=== PATIENT | male | born 1960 | race Two or more races ===

== ENCOUNTER 2024-02-11 17:05 | Emergency (ER) | payer OTHER, SELFPAY ==
--- NOTE | 2024-02-11 17:30 | ED.EYEPROB ---
HPI - Eye Problem General Chief complaint: Extremity Problem Stated complaint: swollen R elbow Time Seen by Provider: 02/11/24 18:05 Source: patient, RN notes reviewed and old records reviewed Mode of arrival: ambulatory History of Present Illness ED Provider: Jillian Nino PA-C HPI Narrative: 63 year old male with PMHx HTN, CKD s/p renal transplant (17 yrs ago) c/o presenting to the ED complaining of atraumatic painless right elbow swelling x2 weeks. States woke up with swelling. Denies known injury, trauma/fall, numbness/tingling, fever/chills. Denies taking anticoagulation Related Data Allergies Allergy/AdvReac Type Severity Reaction Status Date / Time No Known Allergies Allergy Verified 02/11/24 18:07 Review of Systems Review of Systems: Constitutional: No Fever, No Chills Cardiovascular: No Chest Pain, No SOB Respiratory: No Cough Gastrointestinal: No Nausea, No Vomiting, No Abdominal pain Musculoskeletal: No joint pain, No Myalgias, + Joint Swelling Skin: No Skin Lesions, No rash Neuro: No Weakness, No Numbness, No Paresthesias Yes all other systems are reviewed and are negative Constitutional: Constitutional: Reports as per [facility] Past Medical History Attestation statement: The following information was validated with the patient. Source: old records reviewed Physical Exam Vital Signs: Vital Signs: Last Vital Signs Temp 98.1 F 02/11/24 18:01 Pulse 77 02/11/24 18:01 Resp 16 02/11/24 18:01 BP 139/87 02/11/24 18:01 Pulse Ox 97 02/11/24 18:01 O2 Del Method Room Air 02/11/24 18:01 BMI result Body Mass Index 32.7 Const: General: cooperative, healthy appearing and no acute distress Orientation/consciousness: patient oriented x3 Limitations: no limitations HEENT: Head: Yes normal to inspection and Yes atraumatic Ears: hearing grossly normal bilaterally General nose exam: Normal external nose present Face and sinus: Yes normal facial exam Eyes: General: appearance normal, both eyes and all related structures EOM: EOMs intact bilaterally Neck: Neck: Yes normal visual inspection and Yes no meningeal signs Resp: Effort & Inspection: normal respiratory effort and no respiratory distress Cardio: Rate: regular rate Skin: Rashes: no rashes Wounds: no wounds Neuro: General: patient oriented x3, tone normal and no meningeal signs Cranial nerves: Yes CN's II-XII intact bilaterally Gait exam (Neuro): Normal gait present Extrem: Other: + bursitis right elbow. No overlying erythema or warmth. Nontender. Full range of motion intact. Neurovascularly intact distally Medical Decision Making Medical Decision Making MDM Narrative: 63 year old male with PMHx HTN, CKD s/p renal transplant (17 yrs ago) c/o presenting to the ED complaining of atraumatic painless right elbow swelling x2 weeks. On exam vital signs stable, NAD, nontoxic appearing, physical exam as noted above consistent with elbow bursitis without overlying infection. Low suspicion for abscess or hematoma. No need for imaging at this time Plan: Compression, PCP/orthopedic follow-up as needed Please refer to course for remaining clinical decision making, interpretation of labs/imaging results, and discussions with consultants and/or family members. Results discussed with patient including worrisome signs and symptoms and strict return precautions, and when to return to the emergency department. They verbalized understanding and feel safe for discharge at this time. Differential Diagnosis Differential Diagnoses: The differential diagnosis associated with the presentation includes As above External Record Review External record reviewed: Inpatient record, Office record, Outpatient record, Prior outpatient labs, Prior outpatient radiology, Primary care record and Outside ED record Tests considered The following testing was considered but not selected: As above Discharge Plan Discharge Clinical Impression: Bursitis Patient Disposition: Home, Self-Care Instructions: Elbow Bursitis (ED) Additional Instructions: you have bursitis use TYSON wrap for compression If area begins look infected, is red there is drainage or warmth or you have fever return to the ED Follow-up with your PCP. Follow-up orthopedics as needed Referrals: [facility] [Provider Group] [facility] [Provider Group] [facility] [Provider Group] (as needed) Print Language: Djiboutian
[2024-02-11 18:01] VITALS: BP 139/87; PULSE 77; RESP 16; TEMP 36.7; O2SAT 97; BMI 32.7
[2024-02-11 18:30] VITALS: BP 139/87; PULSE 77; RESP 16; TEMP 36.7; O2SAT 97
== END 2024-02-11 18:30 | disposition home or self-care (01) ==
PROVIDERS: Emergency Provider Emergency Medicine
DX: M70.31 Other bursitis of elbow, right elbow (principal); Y93.9 Activity, unspecified; M25.521 Pain in right elbow
CPT/HCPCS: 99282

== ENCOUNTER 2024-05-15 15:22 | Outpatient (AMB) | payer OTHER, SELFPAY ==
--- NOTE | 2024-05-15 15:29 | A.OFFVIS_ITS ---
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 Patient reports he does not feel pain in the right elbow, it is just uncomfortable. He expresses his right elbow has a lot of fluid in it. He says he wants to make sure he is not at risk of getting any infection from this. 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 Patient states that this has been going on for a couple of months. Patient states that this condition is painless, but he does find it quite irritating. Patient inquires if there is a surgical intervention to be had for this problem. Denies any numbness or tingling in the right upper extremity. No other acute complaints or concerns at this time. [facility] Social History (Updated 05/15/24 @ 15:35 by KANE Fonseca) Alcohol intake: never Patient Tobacco Use Status: Never used Tobacco Current occupational status: employed Current occupation: right handed / maintenance Review of Systems Const All systems reviewed & are unremarkable except as noted in HPI and below Physical Exam Vital Signs: BMI result Body Mass Index 30.7 Extrem Other: On inspection, there is a large area of swelling on the patient's right elbow No erythema, ecchymosis noted No lacerations, abrasions, open areas No evidence of infection Patient reports no tenderness to palpation of the large area of swelling This area is fluid filled to touch, not firm Patient is able to flex and extend the right elbow fully and without difficulty Distal sensation intact Capillary refill brisk Assessment & Plan Assessment & Plan (1) Olecranon bursitis of right elbow: Code(s): M70.21 - Olecranon bursitis, right elbow Category: Medical Plan 1. Olecranon bursitis of right elbow Patient is educated about this condition Patient is educated about the typical recovery course At this time, patient is informed that we do not drain nonseptic olecranon bursitis, as it does not heal well and will often continue to drain 4 months afterwards, potentially creating risk for infection Patient expresses understanding of this Patient is educated that the mainstay of treatment for olecranon bursitis is consistent gentle compression of the elbow Patient was provided with 2 Remi bandages to help with this gentle compression Patient was amenable to this plan Patient will follow-up as needed with any acute concerns Coding Level of Care Code New Pt Level 3 (80854) Diagnoses Olecranon bursitis of right elbow M70.21
[2024-05-15 15:32] VITALS: BMI 30.7
== END 2024-05-15 15:49 | disposition home or self-care (01) ==
DX: M70.21 Olecranon bursitis, right elbow (principal)
CPT/HCPCS: 99203

== ENCOUNTER 2025-02-03 12:05 | Inpatient (IN) | payer MEDICARE, SELFPAY ==
[2025-02-03] VITALS (7 sets, daily range): BP systolic 113–153; BP diastolic 55–81; PULSE 84–114; RESP 16–20; TEMP 36.9–38.2; O2SAT 96–97; BMI 31.0
--- NOTE | ~2025-02-03 | US_ITS ---
EXAMINATION: US ABDOMEN LIMITED HISTORY: transaminitis, fever, mild hydronephrosis TECHNIQUE: Real-time grayscale ultrasound imaging of the liver and a right lower quadrant renal transplant was performed and images were reviewed. COMPARISON: Correlation is made with an unenhanced CT of the abdomen dated 02/03/2025. FINDINGS: Liver: The liver is normal in size. The liver demonstrates mildly increased echotexture, consistent with steatosis. No focal mass or intrahepatic biliary ductal dilatation is identified. There is normal hepatopedal flow in the portal vein. Gallbladder and biliary tree: There are small polyps in the gallbladder. The gallbladder is otherwise unremarkable, without evidence of calculi, wall thickening, or pericholecystic fluid. There is no sonographic [place] sign. The common bile duct is normal in caliber measuring 3 mm. Right Kidney: The [place] right kidney is atrophic, measuring 5.7 cm in length. There are multiple cysts measuring up to 8 mm in size. The right lower quadrant renal transplant measures 14.6 cm in length and demonstrates mild hydronephrosis. The renal artery and vein are patent. There is no free fluid in the right upper quadrant. US/US abdomen limited IMPRESSION: 1. Mild hepatic steatosis. Small gallbladder polyps. 2. Right lower quadrant renal transplant demonstrating mild hydronephrosis as seen on CT. Electronically signed by: Tylor Howard MD 02/05/2025 03:46 PM EDT
--- NOTE | ~2025-02-03 | CT_ITS ---
CLINICAL HISTORY: diarrhea, nausea, weakness CT abdomen and pelvis with contrast Comparison: None available Findings: No consolidation at the lung bases. Unremarkable gallbladder . Underdistended bladder. Hepatic steatosis. Atrophic multi-cystic kake kidneys. Right lower quadrant transplant kidney. Mild hydronephrosis of the transplant kidney with mild perinephric stranding. No nephrolithiasis. Multifocal peripheral parenchymal increased attenuation in the transplant kidney measuring up to 1.5 cm (see series 2, image 38). The other solid organs are unremarkable. Small hiatal hernia. No bowel wall thickening or dilation. Status post right hemicolectomy. No aneurysm. Moderate calcified atherosclerotic disease. No lymphadenopathy. No ascites. No acute osseous abnormality. Intact bilateral hip arthroplasties. Large amount of heterotopic ossification in the right Impression: Right lower quadrant transplant kidney with mild hydronephrosis and perinephric stranding. Multifocal peripheral parenchymal increased attenuation within the transplant kidney measuring up to 1.5 cm which could be hemorrhagic cysts or parenchymal hemorrhage. Consider further evaluation with ultrasound to evaluate for vessel patency. Correlate with urinalysis to exclude infection. No identified urinary tract stone; a recently passed stone is considered less likely as there is no nephrolithiasis. This document has been electronically signed by: Rhonda Lucio MD on 02/03/2025 15:18:17
--- NOTE | ~2025-02-03 | CT_ITS ---
CLINICAL HISTORY: fall, trauma CT head without contrast Comparison: None available Findings: No acute hemorrhage. No extra-axial fluid collection. Mild prominence of the frontal extra-axial spaces due to atrophy of the brain parenchyma. No hydrocephalus, mass-effect or herniation. Sinha-white differentiation is maintained. White matter is within normal limits for age. No acute orbital pathology. No acute soft tissue abnormality. No fracture. Mucosal thickening and retention cysts/polyps in the alveolar recesses bilaterally. The other visualized paranasal sinuses are predominantly clear. The mastoid air cells are clear. Impression: No acute intracranial findings. This document has been electronically signed by: Rhonda Lucio MD on 02/03/2025 15:11:35
--- NOTE | ~2025-02-03 | XR_ITS ---
CLINICAL HISTORY: weakness Chest Radiographs, 2 views Comparison: None available Findings: No cardiomegaly. Vascular stents. Normal mediastinal contours. No pneumothorax. No opacity. No pleural effusion. Normal upper abdomen. No acute fracture. Impression: No acute findings. This document has been electronically signed by: Rhonda Lucio MD on 02/03/2025 15:04:54
--- NOTE | 2025-02-03 12:27 | ED_ITS ---
HPI - General Adult General Chief complaint: Syncope Stated complaint: fainting Time Seen by Provider: 02/03/25 13:33 Source: patient Limitations: no limitations History of Present Illness HPI narrative: 64-year-old male who has a history of renal transplant, hypertension, CKD, presents for evaluation of weakness and fall. Patient states that over the past several days he has been not feeling well, generally weak. He has had associated diarrhea and decreased p.o. intake. He has had intermittent episodes of nausea but no vomiting. Patient states that after getting out of the shower today he felt weak, fell to the ground and was unable to get up on his own as he was lodged between the toilet and bathtub. A family member was able to assist him. Patient recalls the entire event. Currently he is asymptomatic. He denies any chest pain or shortness of breath. He does report feeling lightheaded. No fevers chills nausea or vomiting. He is urinating without difficulty. No other recent trauma. He is not on anticoagulants. Related Data Home Medications ?Medication ?Instructions ?Recorded ?Confirmed amoxicillin 500 mg tablet 1,000 mg PO BID 05/15/24 ergocalciferol (vitamin D2) 1,250 1,250 mcg PO QWEEK 1 07/15/23 mcg (50,000 unit) capsule famotidine 20 mg tablet 20 mg PO BID 05/15/24 lisinopril 10 mg tablet 10 mg PO DAILY 05/15/24 mycophenolate sodium 360 mg 720 mg PO BID 05/15/24 tablet,delayed release prednisone 5 mg tablet mg PO 05/15/24 rosuvastatin 40 mg tablet 40 mg PO DAILY 05/15/24 sirolimus 1 mg tablet 2 mg PO DAILY 05/15/24 Allergies Allergy/AdvReac Type Severity Reaction Status Date / Time No Known Allergies Allergy Verified 02/03/25 12:30 Review of Systems 2 Constitutional: Constitutional: Denies chills, Denies fever(s), Denies headache(s) and Reports weakness Eyes: Eyes: Denies change in vision and Denies other (No redness.) ENT: Denies headache(s), Denies nasal congestion, Denies nasal discharge, Denies neck pain and Denies sore throat Cardiovascular: Cardiovascular: Denies chest pain, Denies palpitations, Denies dyspnea, Denies dyspnea on exertion and Denies orthopnea Respiratory: Respiratory: Denies cough, Denies dyspnea and Denies dyspnea on exertion Gastrointestinal: Gastrointestinal: Denies abdominal pain, Denies melena, Denies hematochezia, Reports diarrhea, Reports nausea and Denies vomiting Genitourinary: Genitourinary: Denies difficulty urinating, Denies dysuria and Denies urinary urgency Musculoskeletal: Musculoskeletal: Denies back pain, Denies muscle weakness, Denies neck pain and Denies numbness Integumentary/Breasts: Skin/Breast: Denies rash Neurologic: Denies headache(s), Denies focal weakness, Denies numbness and Reports weakness Psychiatric: Psychiatric: Denies depression Endocrine: Endocrine: Denies palpitations [facility] Social History Social History Alcohol intake: never Patient Tobacco Use Status: Never used Tobacco Smoked in Last 30 Days: No Use of substances other than those prescribed or required for medical reasons: No Advance Directives: No Advance Directives Information Provided: Yes Current occupational status: employed Current occupation: right handed / maintenance Physical Exam ED Vital Signs: Vital Signs - 24 hr 02/03/25 12:29 02/03/25 14:23 02/03/25 16:20 Temperature 100.8 F H 98.4 F 98.6 F Pulse Rate 114 H 95 90 Respiratory Rate 20 16 16 Blood Pressure 153/72 H 125/75 132/74 Pulse Oximetry 96 97 96 Oxygen Delivery Method Room Air Room Air Room Air BMI result Body Mass Index 31.0 Const General: alert, awake and Physically active HENMT Other: Atraumatic. No nystagmus. Pupils equal round and reactive to light. Resp Other: Lung sounds clear throughout Cardio Other: Regular rate and rhythm GI Other: Abdomen is soft and nontender throughout. No peritoneal signs. Negative Redding's sign. Extrem Other: No calf tenderness or pedal edema bilaterally Course Course Course Narrative: This is an RME: Additional HPI, ROS, PE not included below will be deferred to primary provider. RME assessment and note performed by: Anai Fuentes PA-C This is a [id number]-male, with a hx of HTN, CKD s/p renal transplant (18 yrs ago) who presents to the ER with complaints of syncopal episode. Reports that when he came out of his shower, he fainted. Reports that he did not hit his head. Reports that he was on the ground for 5 minutes. Reports he has had alot of diarrhea. No bloody or black stool. Reporting that he is feeling dizzy now. No recent travel. No CP or SOB. Advised charge nurse to bring pt back sherice Plan: Labs, EKG, viral swabs Reevaluation(s) Reevaluation #1: February 03, 2025, 3:[address] Nicole Mcmanus, who is covering for Dr. Presley who agrees with current plan to continue antibiotics and see what the urine culture shows. Agrees with hospital admission and they will follow up. Message to hospitalist for transfer of care. 5:00 a.m. p.m. urinalysis returned, protein, ketones and trace blood is noted. No bacteria and otherwise within normal ranges. Patient will continue to be monitored by hospitalist and Nephrology. Medications Administered Discontinued Medications Generic Name Dose Route Start Last Admin Trade Name Freq PRN Reason Stop Dose Admin Ceftriaxone Sodium 1 gm 02/03/25 14:19 02/03/25 14:46 Ceftriaxone Sodium 1 Gm Vial IVPUSH 02/03/25 14:20 1 gm ONCE ONE Administration Sodium Chloride 1,000 mls @ 999 mls/hr 02/03/25 14:00 02/03/25 14:11 Ns IV 02/03/25 15:00 999 mls/hr .Q1H1M CATHY Administration Sodium Chloride 1,914 mls @ 1,914 mls/hr 02/03/25 14:19 02/03/25 14:41 Ns IV 02/03/25 15:18 1,914 mls/hr .Q1H STA Administration Medical Decision Making Medical Decision Making MDM Narrative: 64-year-old male status post renal transplant, hypertension, CKD, presents for evaluation of weakness fall and diarrhea. Patient feeling generally unwell. He has a low-grade temp of a 100.8? upon arrival. He is tachycardic at 114. Suspect possible SIRS. Sepsis alert initiated. Fluid ordered for ideal body weight as the patient is obese and has a BMI over 30. Check labs, UA, chest x- ray. Check head CT as well as abdominal CT for intracranial or intra-abdominal process. Discussed with Dr. Maciel. Differential Diagnosis Differential Diagnoses: The differential diagnosis associated with the presentation includes Sepsis - considered at 2:19 p.m. Dehydration Gastroenteritis Viral syndrome UTI Pyelonephritis Pneumonia Arrhythmia Admission/Observation Consideration of admission/observation: Escalation of care including admission/observation considered Lab Data MDM Lab Attestation statement: I reviewed the patient's lab results. 02/03/25 13:05 02/03/25 14:46 Labs: Lab Results 02/03/25 02/03/25 02/03/25 Range/Units 13:05 14:46 15:01 WBC 14.8 H (4.8-10.8) X10*3/uL RBC 5.59 (4.60-5.80) X10*6/uL Hgb 15.1 (14.0-18.0) g/dl Hct 45.8 (42.0-52.0) % MCV 81.9 (80.0-98.0) fL MCH 27.0 (27.0-33.0) pg MCHC 33.0 (31.0-36.0) g/dl RDW 15.7 (11.0-16.0) % Plt Count 226 (160-400) X10*3/uL MPV 9.1 L (9.4-12.4) fL Immature Gran % (Auto) 0.7 H (0.0-0.4) % Neut % (Auto) 77.0 H (45-73) % Lymph % (Auto) 4.2 L (20-40) % [place] % (Auto) 17.9 H (2-11) % Eos % (Auto) 0.0 (0-4) % Baso % (Auto) 0.2 (0-2) % Lymph # (Auto) 0.6 L (1.2-4.9) X10*3/uL [place] # (Auto) 2.7 H (0.1-1.2) X10*3/uL Eos # (Auto) 0.0 (0.0-0.4) X10*3/uL Baso # (Auto) 0.0 (0.0-0.2) X10*3/uL Abs Immat Gran (auto) 0.10 H (0.00-0.03) X10*3/uL Absolute Neuts (auto) 11.4 H (2.0-8.3) x10*3/uL Absolute Nucleated RBC 0.000 (0.0-0.012) X10*3/uL Nucleated RBC % (auto) 0.0 (0.0-0.2) /100WBC Smear Tech's Comments VERIFIED Sodium 131 L (135-145) mmol/L Potassium 3.8 (3.3-5.1) mmol/L Chloride 102 (96-108) mmol/L Carbon Dioxide 18 L (22-29) mmol/L Anion Gap 15 (12-20) BUN 20 H (9-16) mg/dL Creatinine 1.34 (0.5-1.4) mg/dL Estim Creat Clear Calc 56.0 Estimated GFR 53 Random Glucose 113 (60-115) mg/dL Lactic Acid 1.1 (0.5-2.0) mmol/L Calcium 8.4 (8.4-10.2) mg/dL Magnesium 1.8 (1.6-2.6) mg/dL Total Bilirubin 0.8 (0.0-1.0) mg/dL Direct Bilirubin 0.3 (0.0-0.5) mg/dL AST 37 (5-37) U/L ALT 22 (0-40) U/L Alkaline Phosphatase 64 (39-117) U/L Troponin I High Sens 28.0 (<3.5-35.0) ng/L Total Protein 6.6 (6.5-8.0) g/dL Albumin 3.8 (3.5-5.0) g/dL Lipase 28 (8-78) U/L Urine Color Urine Appearance Urine pH (5.0-9.0) Ur Specific [place] (1.005-1.025) Urine Protein (Neg-Trace) mg/dL Urine Glucose (UA) (Negative) mg/dL Urine Ketones (Negative) mg/dL Urine Blood (Negative) Urine Nitrite (Negative) Ur Leukocyte Esterase (Negative) Urine RBC (0-2) /HPF Urine WBC (0-5) /HPF Ur Squamous Epith Cells (0-2) /HPF Urine Bacteria (None Seen) Hyaline Casts (0-2) /LPF Influenza Type A (PCR) NEGATIVE (Negative) Influenza Type B (PCR) NEGATIVE (Negative) RSV RNA Qual (PCR) NEGATIVE (Negative) SARS-CoV-2 RNA (RT-PCR) NEGATIVE (Negative) 02/03/25 Range/Units 16:31 WBC (4.8-10.8) X10*3/uL RBC (4.60-5.80) X10*6/uL Hgb (14.0-18.0) g/dl Hct (42.0-52.0) % MCV (80.0-98.0) fL MCH (27.0-33.0) pg MCHC (31.0-36.0) g/dl RDW (11.0-16.0) % Plt Count (160-400) X10*3/uL MPV (9.4-12.4) fL Immature Gran % (Auto) (0.0-0.4) % Neut % (Auto) (45-73) % Lymph % (Auto) (20-40) % [place] % (Auto) (2-11) % Eos % (Auto) (0-4) % Baso % (Auto) (0-2) % Lymph # (Auto) (1.2-4.9) X10*3/uL [place] # (Auto) (0.1-1.2) X10*3/uL Eos # (Auto) (0.0-0.4) X10*3/uL Baso # (Auto) (0.0-0.2) X10*3/uL Abs Immat Gran (auto) (0.00-0.03) X10*3/uL Absolute Neuts (auto) (2.0-8.3) x10*3/uL Absolute Nucleated RBC (0.0-0.012) X10*3/uL Nucleated RBC % (auto) (0.0-0.2) /100WBC Smear Tech's Comments Sodium (135-145) mmol/L Potassium (3.3-5.1) mmol/L Chloride (96-108) mmol/L Carbon Dioxide (22-29) mmol/L Anion Gap (12-20) BUN (9-16) mg/dL Creatinine (0.5-1.4) mg/dL Estim Creat Clear Calc Estimated GFR Random Glucose (60-115) mg/dL Lactic Acid (0.5-2.0) mmol/L Calcium (8.4-10.2) mg/dL Magnesium (1.6-2.6) mg/dL Total Bilirubin (0.0-1.0) mg/dL Direct Bilirubin (0.0-0.5) mg/dL AST (5-37) U/L ALT (0-40) U/L Alkaline Phosphatase (39-117) U/L Troponin I High Sens (<3.5-35.0) ng/L Total Protein (6.5-8.0) g/dL Albumin (3.5-5.0) g/dL Lipase (8-78) U/L Urine Color Yellow Urine Appearance Clear Urine pH 5.5 (5.0-9.0) Ur Specific [place] 1.010 (1.005-1.025) Urine Protein 30 (1+) H (Neg-Trace) mg/dL Urine Glucose (UA) Negative (Negative) mg/dL Urine Ketones 40 (Negative) mg/dL Urine Blood Trace H (Negative) Urine Nitrite Negative (Negative) Ur Leukocyte Esterase Negative (Negative) Urine RBC 0-2 (0-2) /HPF Urine WBC 0-5 (0-5) /HPF Ur Squamous Epith Cells 0-2 (0-2) /HPF Urine Bacteria None Seen (None Seen) Hyaline Casts 3-5 (0-2) /LPF Influenza Type A (PCR) (Negative) Influenza Type B (PCR) (Negative) RSV RNA Qual (PCR) (Negative) SARS-CoV-2 RNA (RT-PCR) (Negative) Independent Interpretation I performed an independent interpretation of an: EKG Radiology Impression Discussion of test interpretation with radiology: I have reviewed the radiologist's reading. Radiologist Impression: [place] [id number] [address] Scan Report Signed Patient: Jacqueline Davenport MR#: [id number] : 1960 Acct:[id number] Age/Sex: 64 / M ADM Date: 02/03/25 Loc: .ED Attending Dr: Ordering Physician: Jayy Cummings Date of Service: 02/03/25 Procedure(s): CT head/brain wo IV con Accession Number(s): [id number] cc: Physician,Unknown ; Jayy Cummings~ Report Number: [id number]: Total DLP = 698.00 mGy-cm CLINICAL HISTORY: fall, trauma CT head without contrast Comparison: None available Findings: No acute hemorrhage. No extra-axial fluid collection. Mild prominence of the frontal extra-axial spaces due to atrophy of the brain parenchyma. No hydrocephalus, mass-effect or herniation. Sinha-white differentiation is maintained. White matter is within normal limits for age. No acute orbital pathology. No acute soft tissue abnormality. No fracture. Mucosal thickening and retention cysts/polyps in the alveolar recesses bilaterally. The other visualized paranasal sinuses are predominantly clear. The mastoid air cells are clear. Impression: No acute intracranial findings. This document has been electronically signed by: Rhonda Lucio MD on 02/03/2025 15:11:35 Dictated By: Rhonda Alfaro MD Signed By: <Electronically signed by Rhonda Alfaro MD in OV> 02/03/25 1512 DD/ 1511 TD/TT: 02/03/25 1511 Lab Aid: [address] [address] XRay Report Signed Patient: Jacqueline Davenport MR#: [id number] : 1960 Acct:[id number] Age/Sex: 64 / M ADM Date: 02/03/25 Loc: HO.ED Attending Dr: Ordering Physician: Jayy Cummings Date of Service: 02/03/25 Procedure(s): XR chest 2V Accession Number(s): [id number] cc: Physician,Unknown ; Jayy Cummings~ CLINICAL HISTORY: weakness Chest Radiographs, 2 views Comparison: None available Findings: No cardiomegaly. Vascular stents. Normal mediastinal contours. No pneumothorax. No opacity. No pleural effusion. Normal upper abdomen. No acute fracture. Impression: No acute findings. This document has been electronically signed by: Rhonda Lucio MD on 02/03/2025 15:04:54 Dictated By: Rhonda Alfaro MD Signed By: <Electronically signed by Rhonda Alfaro MD in OV> 02/03/25 1505 DD/ 1504 TD/TT: 02/03/25 1504 Lab Aid: [address] [place] [address] CT Scan Report Signed Patient: Jacqueline Davenport MR#: [id number] : 1960 Acct:[id number] Age/Sex: 64 / M ADM Date: 02/03/25 Loc: HO.ED Attending Dr: Ordering Physician: Jayy Cummings Date of Service: 02/03/25 Procedure(s): CT head/brain wo IV con Accession Number(s): [id number] cc: Physician,Unknown ; Jayy Cummings~ Report Number: [id number]: Total DLP = 698.00 mGy-cm CLINICAL HISTORY: fall, trauma CT head without contrast Comparison: None available Findings: No acute hemorrhage. No extra-axial fluid collection. Mild prominence of the frontal extra-axial spaces due to atrophy of the brain parenchyma. No hydrocephalus, mass-effect or herniation. Sinha-white differentiation is maintained. White matter is within normal limits for age. No acute orbital pathology. No acute soft tissue abnormality. No fracture. Mucosal thickening and retention cysts/polyps in the alveolar recesses bilaterally. The other visualized paranasal sinuses are predominantly clear. The mastoid air cells are clear. Impression: No acute intracranial findings. This document has been electronically signed by: Rhonda Lucio MD on 02/03/2025 15:11:35 Dictated By: Rhonda Alfaro MD Signed By: <Electronically signed by Rhonda Alfaro MD in OV> 02/03/25 1512 DD/ 1511 TD/TT: 02/03/25 1511 Lab Aid: Prescription Management I considered prescription management with: Antibiotic Chronic Conditions Patient?s care impacted by: Hypertension Critical Care Time Critical Care Time Critical Care Time: Yes Total Critical Care Time: 45 Attestation: Repeat evaluations, sepsis workup, IV fluids, IV antibiotics, reassessments and discussion with consult. Discharge Plan Discharge Clinical Impression: Nephritis and nephropathy Patient Disposition: Admitted As Inpatient
[2025-02-03 13:28] LABS: Hematocrit 45.8 % (42.0-52.0); Hemoglobin 15.1 g/dl (14.0-18.0); Imm Gran Abs Auto 0.10 X10*3/uL (0.00-0.03); Imm Gran Pct Auto 0.7 % (0.0-0.4); Lymphocytes Absolute Auto 0.6 X10*3/uL (1.2-4.9); MANUAL DIFF FLAG SCAN; Mean Corpuscular HGB Conc 33.0 g/dl (31.0-36.0); Mean Corpuscular Hemoglobin 27.0 pg (27.0-33.0); Mean Corpuscular Volume 81.9 fL (80.0-98.0); NRBC Abs Auto 0.000 X10*3/uL (0.0-0.012); NRBC Pct Auto 0.0 /100WBC (0.0-0.2); Platelet Count 226 X10*3/uL (160-400); Red Blood Count 5.59 X10*6/uL (4.60-5.80); SCAN SMEAR FLAG 1; White Blood Count 14.8 X10*3/uL (4.8-10.8)
--- OUTSIDE RECORDS SUMMARY | 2025-02-03 13:32 | XMS_ITS | Encounter Summary ---
Author Organization [facility] Address [address] [address] Phone Care Team Providers Care Executive Vp Name Role Phone Talib Vogt MD Primary Care Provider [phone] Encounter Details Date Type Department Care Team (Late st Contact Info) Description 04/04/2024 Documentation Only [facility], [address] [place] [phone] Miya BryantElsinore, [place] [address] [place] [address] Social History Tobacco Use Types Packs/Day Years Used Date Smoking Tobacco: Never Sex and Gender Information Value Date Recorded Sex Assigned at Not on file Legal Sex Male 5:15 PM EST Gender Identity Not on file Sexual Orientation Not on file documented as of this encounter Plan of Treatment Upcoming Encounters Date Type Department Care Team (Late st Contact Info) Description 02/16/2025 9:45 AM EDT Office Visit [facility] [address] [place] [address] Bob Presley MD [address] [place] [phone] documented as of this encounter Visit Diagnoses Not on filedocumented in this encounter Care Teams Executive Vp Relationship Specialty Start Date End Date Talib Vogt MD [address] [place], [place] PCP - General Internal Medicine 10/13/24 documented as of this encounter
--- NOTE | 2025-02-03 14:01 | ECG_ITS ---
Test Reason : WEAKNESS Blood Pressure : */* mmHG Vent. Rate : 92 BPM Atrial Rate : 92 BPM P-R Int : 130 ms QRS Dur : 92 ms QT Int : 344 ms P-R-T Axes : 24 50 57 degrees QTcB Int : 425 ms Normal sinus rhythm Nonspecific ST abnormality Abnormal ECG No previous ECGs available Referred By: Jayy Cummings Electronically Signed By: LANI GARCES
[2025-02-03 15:15] LABS: Alanine Aminotransferase 22 U/L (0-40); Albumin Level 3.8 g/dL (3.5-5.0); Alkaline Phosphatase 64 U/L (39-117); Anion Gap 15 (12-20); Aspartate Amino Transferase 37 U/L (5-37); Blood Urea Nitrogen 20 mg/dL (9-16); Calcium 8.4 mg/dL (8.4-10.2); Carbon Dioxide 18 mmol/L (22-29); Chloride 102 mmol/L (96-108); Creatinine Clr Calc Pharmacy 56.0; Estimated Glomerular Filt Rate 53; Lipase 28 U/L (8-78); Magnesium 1.8 mg/dL (1.6-2.6); Potassium 3.8 mmol/L (3.3-5.1); Sodium 131 mmol/L (135-145); Total Protein 6.6 g/dL (6.5-8.0)
[2025-02-03 15:22] LABS: Troponin-I High Sensitivity 28.0 ng/L (<3.5-35.0)
[2025-02-03 15:43] LABS: Resp Syncy Virus RNA Qual PCR NEGATIVE (Negative); SARS COV2 PCR INHOUSE NEGATIVE (Negative)
--- NOTE | 2025-02-03 16:41 | PC.NURSE ---
IV positional fluids infusing, pt difficult stick. Fluids still infusing although placed on pressure bag to assist infusion. VSS.
[2025-02-03 16:43] LABS: Appearance Urine Clear; Glucose Urine UA Negative (Negative); PH 5.5 (5.0-9.0); Specific Gravity - Urine 1.010 (1.005-1.025); UMIC TRIGGER UA YES; UMIC TRIGGER UACC YES
--- NOTE | 2025-02-03 17:13 | P.HPHOSP_ITS ---
History of Present Illness Date of Service: 02/03/25 Chief Complaint: syncope 64-year-old male with a history of renal transplant, hypertension, CKD presents after a fall. Unwitnessed. Patient states he has been having diarrhea and decreased oral intake over the last 2 days. Patient states after getting out of the shower he felt weak fell to the ground and had to call family to help him up. Patient does recall the entire event. In the emergency room patient's workup revealed right lower quadrant kidney transplant with mild hydronephrosis and perinephric stranding. There was multifocal peripheral parenchymal increased attention attenuation question of hemorrhage. Upon arrival patient had low-grade temp. At this point admission requested Review of Systems 2 Review of Systems: Denies chest pain Denies shortness of breath Denies nausea vomiting diarrhea Denies fever subjective chills PMFSH Social History Alcohol intake: never Patient Tobacco Use Status: Never used Tobacco Smoked in Last 30 Days: No Use of substances other than those prescribed or required for medical reasons: No Advance Directives: No Advance Directives Information Provided: Yes Current occupational status: employed Current occupation: right handed / maintenance Meds Allergies Allergy/AdvReac Type Severity Reaction Status Date / Time No Known Allergies Allergy Verified 02/03/25 12:30 Active Medications: Current Medications Acetaminophen (Acetaminophen 325 Mg Tablet) 650 mg PO Q6H PRN PRN Reason: Pain, Mild 1-3,fever,headache Calcium Carbonate (Calcium Carbonate 750 Mg Tab.Chew) 750 mg PO Q4H PRN PRN Reason: Heartburn Ceftriaxone Sodium (Ceftriaxone Sodium 1 Gm Vial) 1 gm IVPUSH Q24H CATHY Enoxaparin Sodium (Enoxaparin Sodium 40 Mg/0.4 Ml Syringe) 40 mg SUBCUT Q24H CATHY Magnesium Hydroxide (Milk Of Magnesia 30 Ml Oral.Susp) 30 ml PO DAILY PRN PRN Reason: Constipation Melatonin (Melatonin 3 Mg Tablet) 6 mg PO BEDTIME PRN PRN Reason: Insomnia Ondansetron HCl (Ondansetron Hcl 4 Mg/2 Ml Vial) 4 mg IVPUSH Q8H PRN PRN Reason: Nausea and Vomiting Sodium Chloride (0.9 % Sodium Chloride Flush 3 Ml Syringe) 3 ml IVFLUSH QSHIFT [facility] Home Medications ?Medication ?Instructions ?Recorded ?Confirmed ?Last Taken ?Type amoxicillin 500 mg tablet 1,000 mg PO BID 05/15/24 Un known History ergocalciferol (vitamin D2) 1,250 1,250 mcg PO QWEEK 1 07/15/23 Unknown History mcg (50,000 unit) capsule famotidine 20 mg tablet 20 mg PO BID 05/15/24 Unkno wn History lisinopril 10 mg tablet 10 mg PO DAILY 05/15/24 Unk nown History mycophenolate sodium 360 mg 720 mg PO BID 05/15/24 Un known History tablet,delayed release prednisone 5 mg tablet mg PO 05/15/24 Unknown Hist ory rosuvastatin 40 mg tablet 40 mg PO DAILY 05/15/24 Unk nown History sirolimus 1 mg tablet 2 mg PO DAILY 05/15/24 Unkn own History Physical Exam 2 Vital Signs and Narrative: Vital Signs: Last Vital Signs Temp 98.6 F 02/03/25 16:20 Pulse 90 02/03/25 16:20 Resp 16 02/03/25 16:20 BP 132/74 02/03/25 16:20 Pulse Ox 96 02/03/25 16:20 O2 Del Method Room Air 02/03/25 16:20 BMI result Body Mass Index 31.0 Const: Other: Awake alert no acute distress Resp: Other: Clear to auscultation bilaterally no rales rhonchi or wheezes Cardio: Other: No S4; positive S1-S2; no S3 murmurs rubs or gallops GI: Other: Soft nontender nondistended normoactive bowel sounds Neuro: Other: Cranial nerves 2-12 grossly intact as tested. Motor is 5/5 all extremities. Sensation intact. Cognition appropriate. Gait steady Extrem: Other: No edema bilaterally Results Labs 02/03/25 13:05 02/03/25 14:46 Labs: Laboratory Results - last 24 hr 02/03/25 02/03/25 02/03/25 13:05 14:46 15:01 MCV 81.9 MCH 27.0 MCHC 33.0 RDW 15.7 Plt Count 226 MPV 9.1 L Immature Gran % (Auto) 0.7 H Neut % (Auto) 77.0 H Lymph % (Auto) 4.2 L [place] % (Auto) 17.9 H Eos % (Auto) 0.0 Baso % (Auto) 0.2 Lymph # (Auto) 0.6 L [place] # (Auto) 2.7 H Eos # (Auto) 0.0 Baso # (Auto) 0.0 Abs Immat Gran (auto) 0.10 H Absolute Neuts (auto) 11.4 H Absolute Nucleated RBC 0.000 Nucleated RBC % (auto) 0.0 Smear Tech's Comments VERIFIED Anion Gap 15 Estim Creat Clear Calc 56.0 Estimated GFR 53 Random Glucose 113 Lactic Acid 1.1 Calcium 8.4 Magnesium 1.8 Total Bilirubin 0.8 Direct Bilirubin 0.3 AST 37 ALT 22 Alkaline Phosphatase 64 Total Protein 6.6 Albumin 3.8 Lipase 28 Urine Color Urine Appearance Urine pH Ur Specific [place] Urine Protein Urine Glucose (UA) Urine Ketones Urine Blood Urine Nitrite Ur Leukocyte Esterase Urine RBC Urine WBC Ur Squamous Epith Cells Urine Bacteria Hyaline Casts Influenza Type A (PCR) NEGATIVE Influenza Type B (PCR) NEGATIVE RSV RNA Qual (PCR) NEGATIVE SARS-CoV-2 RNA (RT-PCR) NEGATIVE 02/03/25 16:31 MCV MCH MCHC RDW Plt Count MPV Immature Gran % (Auto) Neut % (Auto) Lymph % (Auto) [place] % (Auto) Eos % (Auto) Baso % (Auto) Lymph # (Auto) [place] # (Auto) Eos # (Auto) Baso # (Auto) Abs Immat Gran (auto) Absolute Neuts (auto) Absolute Nucleated RBC Nucleated RBC % (auto) Smear Tech's Comments Anion Gap Estim Creat Clear Calc Estimated GFR Random Glucose Lactic Acid Calcium Magnesium Total Bilirubin Direct Bilirubin AST ALT Alkaline Phosphatase Total Protein Albumin Lipase Urine Color Yellow Urine Appearance Clear Urine pH 5.5 Ur Specific [place] 1.010 Urine Protein 30 (1+) H Urine Glucose (UA) Negative Urine Ketones 40 Urine Blood Trace H Urine Nitrite Negative Ur Leukocyte Esterase Negative Urine RBC 0-2 Urine WBC 0-5 Ur Squamous Epith Cells 0-2 Urine Bacteria None Seen Hyaline Casts 3-5 Influenza Type A (PCR) Influenza Type B (PCR) RSV RNA Qual (PCR) SARS-CoV-2 RNA (RT-PCR) Assessment and Plan (1) Pyelonephritis: Status: Acute (2) Hypertension: Qualifiers: Hypertension type: unspecified Qualified Code(s): I10 - Essential (primary) hypertension Status: Acute (3) History of renal transplant: Status: Acute Plan 64-year-old male with history of renal transplant hypertension presents after several days of feeling weak with associated diarrhea and p.o. intake. Had fall getting out of the shower questionable syncopal episode however patient remembers Full episode. CTA scan concerning for pyelonephritis around transplant kidney 1. Pyelonephritis -ceftriaxone (1) -blood and urine cultures pending; adjust therapies as indicated -renal consult in a.m. 2. Syncope -we will observe on telemetry; given patient remembers episode unlikely a true syncopal episode -further workup based on telemetry data 3. Status post renal transplant -continue outpatient therapies -further management as per renal 4. Hyperlipidemia -continue statin at outpatient dosing Full code Lovenox Patient will require 2 midnights going forward for IV antibiotics to treat presumptive pyelonephritis and specialty consultation. This can not be achieved a lesser acute setting Quality Stroke Does the patient have a stroke diagnosis?: No VTE Prior VTE?: No VTE Risk Level:: Medical - moderate - high VTE Device Contraindication: Treatment Not Indicated VTE Drug Contraindication: N/A - Med Ordered
--- NOTE | 2025-02-03 17:28 | PHA.MEDREC ---
Pharmacy Consult ? Medication Reconciliation Pharmacy has completed the medication reconciliation.Med rec complete spoke to patient and compared with pharmacy claim history. Patient will have family bring in the sirolimus.
--- NOTE | 2025-02-03 18:25 | PC.NURSE ---
Mycophenolic acid and Sirolinus brought in from home, meds brought to pharmacy. Pharmacy to verify and label and will return to ED
[2025-02-03] MEDS: MYCOPHENOLIC ACID 360 MG 2 EACH PO (20:42)
--- NOTE | 2025-02-03 20:44 | PC.NURSE ---
pt medicated per AUG w/ home medication, medication placed back in patient specific bin at this time
--- NOTE | 2025-02-03 20:50 | PC.NURSE ---
Addendum entered by Henok Jordan 02/03/25 22:18: home medication: Sirolimus Original Note: pharmacy called at this time in order to obtain home medication
--- NOTE | 2025-02-03 22:19 | PC.NURSE ---
2041: pt medicated w/ home medication Mycophenolic Acid, pt states he takes this in combination w/ Sirolimus twice a day @0900 and 2100, order for Sirolimus placed to begin tomorrow morning 0900, pharmacy called to update this 2156: provider Kathia messaged about pt home medication of Sirolimus,d /t pt stateing he takes this medication in combination with his dose of Mycophenolic Acid @ 0900 and 2100 daily, Sirolimus current order placed to begin tomorrow morning 0900 pending new orders
[2025-02-04] VITALS (11 sets, daily range): BP systolic 110–135; BP diastolic 59–72; PULSE 69–93; RESP 14–29; TEMP 36.1–38.4; O2SAT 96–100; BMI 31.4
--- NOTE | 2025-02-04 05:25 | PC.NURSE ---
this RN made aware of pt having an oral temp of 101.1 by heating repair technician , pt medicated per MAR
[2025-02-04 07:02] LABS: Alanine Aminotransferase 24 U/L (0-40); Albumin Level 3.3 g/dL (3.5-5.0); Alkaline Phosphatase 58 U/L (39-117); Anion Gap 12 (12-20); Aspartate Amino Transferase 39 U/L (5-37); Blood Urea Nitrogen 14 mg/dL (9-16); Calcium 8.0 mg/dL (8.4-10.2); Carbon Dioxide 20 mmol/L (22-29); Chloride 104 mmol/L (96-108); Creatinine Clr Calc Pharmacy 75.9; Estimated Glomerular Filt Rate > 60; Potassium 4.0 mmol/L (3.3-5.1); Sodium 132 mmol/L (135-145); Total Protein 5.8 g/dL (6.5-8.0)
[2025-02-04 07:16] LABS: Hematocrit 39.0 % (42.0-52.0); Hemoglobin 13.0 g/dl (14.0-18.0); Imm Gran Abs Auto 0.05 X10*3/uL (0.00-0.03); Imm Gran Pct Auto 0.5 % (0.0-0.4); Lymphocytes Absolute Auto 1.0 X10*3/uL (1.2-4.9); MANUAL DIFF FLAG SCAN; Mean Corpuscular HGB Conc 33.3 g/dl (31.0-36.0); Mean Corpuscular Hemoglobin 27.2 pg (27.0-33.0); Mean Corpuscular Volume 81.6 fL (80.0-98.0); NRBC Abs Auto 0.000 X10*3/uL (0.0-0.012); NRBC Pct Auto 0.0 /100WBC (0.0-0.2); Platelet Count 202 X10*3/uL (160-400); Red Blood Count 4.78 X10*6/uL (4.60-5.80); SCAN SMEAR FLAG 1; White Blood Count 9.6 X10*3/uL (4.8-10.8)
[2025-02-04] MEDS: MYCOPHENOLIC ACID 360 MG 2 EACH PO ×2 (08:56→21:59)
[2025-02-04] MEDS: SIROLIMUS 1 MG 1 EACH PO ×2 (08:57→21:59)
[2025-02-04] MEDS: 0.9 % Sodium Chloride Flush 3 ML SYRINGE IVFLUSH ×4 (08:57→22:06)
--- NOTE | 2025-02-04 09:31 | PC.NURSE ---
Alert and oriented, denies pain or discomfort, medicated per mar.
--- NOTE | 2025-02-04 12:51 | MHC.CM.PN ---
PT LIVES WITH SON AND DIL.. 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
--- NOTE | 2025-02-04 13:05 | HO.PM.IMPN ---
Subjective Subjective Date of Service: 02/04/25 Interval History: No acute issues overnight. Remains afebrile Review of Systems Denies chest pain Denies shortness of breath Denies nausea vomiting diarrhea Denies fever chills Physical Exam Vital Signs: Vital Signs: Last Vital Signs Temp 98.2 F 02/04/25 12:00 Pulse 80 02/04/25 12:00 Resp 16 02/04/25 12:00 BP 110/66 02/04/25 12:00 Pulse Ox 99 02/04/25 12:00 O2 Del Method Room Air 02/04/25 12:00 BMI result Body Mass Index 31.0 Const: Other: Awake alert no acute distress Resp: Other: Clear to auscultation bilaterally no rales rhonchi or wheezes Cardio: Other: No S4; positive S1-S2; no S3 murmurs rubs or gallops GI: Other: Soft nontender nondistended normoactive bowel sounds Neuro: Other: Cranial nerves 2-12 grossly intact as tested. Motor is 5/5 all extremities. Sensation intact. Cognition appropriate. Gait steady Extrem: Other: No edema bilaterally Objective Data Active Medications Acetaminophen (Acetaminophen 325 Mg Tablet) 650 mg PO Q6H PRN PRN Reason: Pain, Mild 1-3,fever,headache Last Admin: 02/04/25 05:32 Dose: 650 mg Documented By: MARGARETH Calcium Carbonate (Calcium Carbonate 750 Mg Tab.Chew) 750 mg PO Q4H PRN PRN Reason: Heartburn Ceftriaxone Sodium (Ceftriaxone Sodium 1 Gm Vial) 1 gm IVPUSH Q24H [facility] Enoxaparin Sodium (Enoxaparin Sodium 40 Mg/0.4 Ml Syringe) 40 mg SUBCUT Q24H [facility] Last Admin: 02/03/25 17:52 Dose: 40 mg Documented By: ARLENE Magnesium Hydroxide (Milk Of Magnesia 30 Ml Oral.Susp) 30 ml PO DAILY PRN PRN Reason: Constipation Melatonin (Melatonin 3 Mg Tablet) 6 mg PO BEDTIME PRN PRN Reason: Insomnia Patient Own Medication ( Mycophenolic Acid Delayed-Release Tabs 360mg) 2 each PO BID [facility] Last Admin: 02/04/25 08:56 Dose: 2 each Documented By: CHRIS Patient Own Medication ( Sirolimus 1mg Tablet ) 1 each PO BID [facility] Last Admin: 02/04/25 08:57 Dose: 1 each Documented By: CHRIS Ondansetron HCl (Ondansetron Hcl 4 Mg/2 Ml Vial) 4 mg IVPUSH Q8H PRN PRN Reason: Nausea and Vomiting Sodium Chloride (0.9 % Sodium Chloride Flush 3 Ml Syringe) 3 ml IVFLUSH QSHIFT [facility] Last Admin: 02/04/25 08:57 Dose: 3 ml Documented By: CHRIS Labs 02/04/25 05:55 02/04/25 05:55 Labs: Laboratory Results - last 24 hr 02/03/25 02/03/25 02/03/25 13:05 14:46 15:01 MCV 81.9 MCH 27.0 MCHC 33.0 RDW 15.7 Plt Count 226 MPV 9.1 L Immature Gran % (Auto) 0.7 H Neut % (Auto) 77.0 H Lymph % (Auto) 4.2 L [place] % (Auto) 17.9 H Eos % (Auto) 0.0 Baso % (Auto) 0.2 Lymph # (Auto) 0.6 L [place] # (Auto) 2.7 H Eos # (Auto) 0.0 Baso # (Auto) 0.0 Abs Immat Gran (auto) 0.10 H Absolute Neuts (auto) 11.4 H Absolute Nucleated RBC 0.000 Nucleated RBC % (auto) 0.0 Smear Tech's Comments VERIFIED Anion Gap 15 Estim Creat Clear Calc 56.0 Estimated GFR 53 Random Glucose 113 Lactic Acid 1.1 Calcium 8.4 Magnesium 1.8 Total Bilirubin 0.8 Direct Bilirubin 0.3 AST 37 ALT 22 Alkaline Phosphatase 64 Total Protein 6.6 Albumin 3.8 Lipase 28 Urine Color Urine Appearance Urine pH Ur Specific [place] Urine Protein Urine Glucose (UA) Urine Ketones Urine Blood Urine Nitrite Ur Leukocyte Esterase Urine RBC Urine WBC Ur Squamous Epith Cells Urine Bacteria Hyaline Casts Influenza Type A (PCR) NEGATIVE Influenza Type B (PCR) NEGATIVE RSV RNA Qual (PCR) NEGATIVE SARS-CoV-2 RNA (RT-PCR) NEGATIVE 02/03/25 02/04/25 16:31 05:55 MCV 81.6 MCH 27.2 MCHC 33.3 RDW 15.2 Plt Count 202 MPV 10.0 Immature Gran % (Auto) 0.5 H Neut % (Auto) 68.8 Lymph % (Auto) 10.7 L [place] % (Auto) 19.9 H Eos % (Auto) 0.0 Baso % (Auto) 0.1 Lymph # (Auto) 1.0 L [place] # (Auto) 1.9 H Eos # (Auto) 0.0 Baso # (Auto) 0.0 Abs Immat Gran (auto) 0.05 H Absolute Neuts (auto) 6.6 Absolute Nucleated RBC 0.000 Nucleated RBC % (auto) 0.0 Smear Tech's Comments VERIFIED Anion Gap 12 Estim Creat Clear Calc 75.9 Estimated GFR > 60 Random Glucose 106 Lactic Acid Calcium 8.0 L Magnesium Total Bilirubin 0.7 Direct Bilirubin AST 39 H ALT 24 Alkaline Phosphatase 58 Total Protein 5.8 L Albumin 3.3 L Lipase Urine Color Yellow Urine Appearance Clear Urine pH 5.5 Ur Specific [place] 1.010 Urine Protein 30 (1+) H Urine Glucose (UA) Negative Urine Ketones 40 Urine Blood Trace H Urine Nitrite Negative Ur Leukocyte Esterase Negative Urine RBC 0-2 Urine WBC 0-5 Ur Squamous Epith Cells 0-2 Urine Bacteria None Seen Hyaline Casts 3-5 Influenza Type A (PCR) Influenza Type B (PCR) RSV RNA Qual (PCR) SARS-CoV-2 RNA (RT-PCR) Assessment and Plan (1) Pyelonephritis: Status: Acute (2) History of renal transplant: Status: Acute (3) Hypertension: Status: Acute Plan 64-year-old male with history of renal transplant hypertension presents after several days of feeling weak with associated diarrhea and p.o. intake. Had fall getting out of the shower questionable syncopal episode however patient remembers Full episode. CTA scan concerning for pyelonephritis around transplant kidney 1. Pyelonephritis -ceftriaxone (2) -blood and urine cultures pending; adjust therapies as indicated -renal consult in a.m. 2. Status post renal transplant -continue outpatient therapies -further management as per renal 3. Hyperlipidemia -continue statin at outpatient dosing Full code Lovenox Patient will require ongoing hospitalization for IV antibiotics to treat pyelonephritis and specialty consultation Quality Stroke Does the patient have a stroke diagnosis?: No VTE Prior VTE?: No VTE Risk Level:: Medical - moderate - high VTE Device Contraindication: Treatment Not Indicated VTE Drug Contraindication: N/A - Med Ordered
[2025-02-05 03:38] VITALS: BP 99/52; PULSE 75; RESP 18; TEMP 36.2; O2SAT 98
[2025-02-05 06:28] LABS: Hematocrit 39.0 % (42.0-52.0); Hemoglobin 13.3 g/dl (14.0-18.0); Imm Gran Abs Auto 0.01 X10*3/uL (0.00-0.03); Imm Gran Pct Auto 0.2 % (0.0-0.4); Lymphocytes Absolute Auto 1.1 X10*3/uL (1.2-4.9); MANUAL DIFF FLAG SCAN; Mean Corpuscular HGB Conc 34.1 g/dl (31.0-36.0); Mean Corpuscular Hemoglobin 27.7 pg (27.0-33.0); Mean Corpuscular Volume 81.3 fL (80.0-98.0); NRBC Abs Auto 0.000 X10*3/uL (0.0-0.012); NRBC Pct Auto 0.0 /100WBC (0.0-0.2); Platelet Count 188 X10*3/uL (160-400); Red Blood Count 4.80 X10*6/uL (4.60-5.80); SCAN SMEAR FLAG 1; White Blood Count 5.2 X10*3/uL (4.8-10.8)
[2025-02-05 06:46] LABS: Alanine Aminotransferase 51 U/L (0-40); Albumin Level 3.2 g/dL (3.5-5.0); Alkaline Phosphatase 64 U/L (39-117); Anion Gap 11 (12-20); Aspartate Amino Transferase 59 U/L (5-37); Blood Urea Nitrogen 13 mg/dL (9-16); Calcium 8.4 mg/dL (8.4-10.2); Carbon Dioxide 24 mmol/L (22-29); Chloride 106 mmol/L (96-108); Creatinine Clr Calc Pharmacy 86.9; Estimated Glomerular Filt Rate > 60; Potassium 4.2 mmol/L (3.3-5.1); Sodium 137 mmol/L (135-145); Total Protein 5.8 g/dL (6.5-8.0)
[2025-02-05 07:57] VITALS: BP 137/73; PULSE 73; RESP 18; TEMP 37.1; O2SAT 98
[2025-02-05] MEDS: SIROLIMUS 1 MG 1 EACH PO (10:12)
[2025-02-05] MEDS: MYCOPHENOLIC ACID 360 MG 2 EACH PO (10:12)
--- NOTE | 2025-02-05 10:54 | P.CONNP_ITS ---
History of Present Illness Reason for Consult Consult date: 02/05/25 Chief Complaint Chief complaint: pyelonephritis History of Present Illness Narrative: 64 y/o male with a history of renal transplant and HTN, CKD who presented 02/03 after unwitnessed fall at home after 2 days of diarrhea and reduced oral intake. imaging with RLQ renal transplant with mild hdyro and perinephric stranding Nephrology consulted for pyelonephritis, hx of renal transplant. creatinine baseline on 02/05 at 0.87, GFR>60. patient receibing ceftriaxone for treatment of pyelonephritis per hospital medicine - per Dr Mcmanus recommended urinalysis with urine culture prior to starting abx over the weekend. patient is on home regimen of immunosuppression- mycophenolic acid 360mg x2 pills BID, sirolimus 1 tablet BID (pt unsure what home dose is but states receiving home medications he brought in), and prednisone 7.5mg PO daily. Pt states he is feeling well today. Denies urinary symptoms and states he is voiding regularly, abdominal pain, flank pain. Reports breathing is comfortable. Reports he follows Dr Presley as outpatient for nephrology care. Review of Systems Review of Systems Yes all other systems are reviewed and are negative [facility], [facility] Social History Social History Household Members: Family Housing: Apartment Do you presently have visiting nurse or other home services: No Alcohol intake: never Patient Tobacco Use Status: Never used Tobacco Smoked in Last 30 Days: No Use of substances other than those prescribed or required for medical reasons: No Currently Displaying Signs/Symptoms of Drug Intoxication Withdrawal: No Advance Directives: No Advance Directives Information Provided: Yes Do you have a plan to hurt others: No Plan Recently lost weight without trying: No Eating poorly because of decreased appetite: No Nutrition Risks: No Nutritional Risk Poor oral hygiene: No service: No Current occupational status: employed Current occupation: right handed / maintenance Meds Allergies Allergy/AdvReac Type Severity Reaction Status Date / Time No Known Allergies Allergy Verified 02/03/25 12:30 Active Medications: Current Medications Acetaminophen (Acetaminophen 325 Mg Tablet) 650 mg PO Q6H PRN PRN Reason: Pain, Mild 1-3,fever,headache Last Admin: 02/04/25 05:32 Dose: 650 mg Atorvastatin Calcium (Atorvastatin Calcium 80 Mg Tablet) 80 mg PO BEDTIME CATHY Last Admin: 02/04/25 21:59 Dose: 80 mg Calcium Carbonate (Calcium Carbonate 750 Mg Tab.Chew) 750 mg PO Q4H PRN PRN Reason: Heartburn Ceftriaxone Sodium (Ceftriaxone Sodium 1 Gm Vial) 1 gm IVPUSH Q24H [facility] Last Admin: 02/04/25 14:43 Dose: 1 gm Enoxaparin Sodium (Enoxaparin Sodium 40 Mg/0.4 Ml Syringe) 40 mg SUBCUT Q24H [facility] Last Admin: 02/04/25 17:02 Dose: 40 mg Ergocalciferol (Ergocalciferol (Vitamin D2) 1,250 Mcg Capsule) 1,250 mcg PO WE@0900 [facility] Famotidine (Famotidine 20 Mg Tablet) 20 mg PO BID [facility] Last Admin: 02/05/25 08:36 Dose: 20 mg Lisinopril (Lisinopril 10 Mg Tablet) 10 mg PO DAILY [facility]; Protocol Last Admin: 02/05/25 08:36 Dose: 10 mg Magnesium Hydroxide (Milk Of Magnesia 30 Ml Oral.Susp) 30 ml PO DAILY PRN PRN Reason: Constipation Melatonin (Melatonin 3 Mg Tablet) 6 mg PO BEDTIME PRN PRN Reason: Insomnia Patient Own Medication ( Mycophenolic Acid Delayed-Release Tabs 360mg) 2 each PO BID [facility] Last Admin: 02/05/25 10:12 Dose: 2 each Patient Own Medication ( Sirolimus 1mg Tablet ) 1 each PO BID [facility] Last Admin: 02/05/25 10:12 Dose: 1 each Ondansetron HCl (Ondansetron Hcl 4 Mg/2 Ml Vial) 4 mg IVPUSH Q8H PRN PRN Reason: Nausea and Vomiting Prednisone (Prednisone 2.5 Mg Tablet) 7.5 mg PO DAILY [facility] Last Admin: 02/05/25 08:36 Dose: 7.5 mg Sodium Chloride (0.9 % Sodium Chloride Flush 3 Ml Syringe) 3 ml IVFLUSH QSHIFT [facility] Last Admin: 02/05/25 08:36 Dose: Not Given Home Medications ?Medication ?Instructions ?Recorded ?Confirmed ?Last Taken ?Type ergocalciferol (vitamin D2) 1,250 1,250 mcg PO WE@0900 05/15/24 02/03/25 Unknown History mcg (50,000 unit) capsule famotidine 20 mg tablet 20 mg PO BID 1102/03/25 History lisinopril 10 mg tablet 10 mg PO DAILY 05/15/24 08/03/2202/03/25 History mycophenolate sodium 360 mg 720 mg PO BID 05/15/2403/2202/03/25 History tablet,delayed release prednisone 5 mg tablet 7.5 mg PO DAILY 05/15/2403/2202/03/25 History rosuvastatin 40 mg tablet 40 mg PO BEDTIME 05/15/2402/02/25 History sirolimus 1 mg tablet 1 mg PO BID 05/15/24 5 02/03/25 History Physical Exam Vital Signs: Last Vital Signs Temp 98.7 F 02/05/25 07:57 Pulse 73 02/05/25 07:57 Resp 18 02/05/25 07:57 BP 137/73 02/05/25 07:57 Pulse Ox 98 02/05/25 07:57 O2 Del Method Room Air 02/05/25 07:57 BMI result Body Mass Index 31.4 Const General: comfortable, alert and awake Resp Effort & Inspection: normal respiratory effort and able to speak in complete sentences Auscultation: clear to auscultation bilaterally Cardio Rate: regular rate Rhythm: regular rhythm Heart sounds: S1 normal heart sound present and S2 normal heart sound present GI Palpation (GI): Soft to palpation and nontender General: Yes no CVA tenderness Back/Spine/Pelvis Back: no CVA tenderness Skin Rashes: no rashes Extrem General: No edema Results Lab Results 02/05/25 05:52 02/05/25 05:52 Lab results: Chemistry 02/03/25 02/04/25 02/05/25 14:46 05:55 05:52 Sodium 131 L 132 L 137 Potassium 3.8 4.0 4.2 Carbon Dioxide 18 L 20 L 24 BUN 20 H 14 13 Creatinine 1.34 0.99 0.87 Calcium 8.4 8.0 L 8.4 Hematology 02/03/25 02/04/25 02/05/25 13:05 05:55 05:52 WBC 14.8 H 9.6 5.2 Hgb 15.1 13.0 L 13.3 L Plt Count 226 202 188 Urinalysis 02/03/25 16:31 Urine Color Yellow Urine Appearance Clear Urine pH 5.5 Ur Specific [place] 1.010 Urine Protein 30 (1+) H Urine Glucose (UA) Negative Urine Ketones 40 Urine Blood Trace H Urine Nitrite Negative Ur Leukocyte Esterase Negative Urine RBC 0-2 Urine WBC 0-5 Ur Squamous Epith Cells 0-2 Hyaline Casts 3-5 Assessment and Plan (1) Pyelonephritis: Status: Acute (2) History of renal transplant: Status: Acute Plan Patient with history of renal transplant here for pyelonephritis continue current regimen for immunosuppression as received as outpatient continue with antibiotic regimen for treatment of pyelonephritis avoid nephrotoxic agents blood pressures acceptable, avoid precipitous drops in blood pressure continue supportive care Patient should follow up with his outpatient upward bound director for continued care and follow up of CT results. Discussed with Dr Mcmanus. Procedures Date of Service Date of Service: 02/05/25
--- NOTE | 2025-02-05 10:59 | HO.PM.IMPN ---
Subjective Subjective Date of Service: 02/05/25 Interval History: No acute issues overnight. fever this morning no pain, nausea or vomiting Physical Exam Exam: Exam: Appearing in no acute distress lung sounds are clear to auscultation heart regular rate rhythm, clear S1, S2 positive bowel sounds, abdomen is soft, nontender neuro patient is alert x3, no focal deficits Vital Signs: Vital Signs: Last Vital Signs Temp 98.7 F 02/05/25 07:57 Pulse 73 02/05/25 07:57 Resp 18 02/05/25 07:57 BP 137/73 02/05/25 07:57 Pulse Ox 98 02/05/25 07:57 O2 Del Method Room Air 02/05/25 07:57 BMI result Body Mass Index 31.4 Objective Data Active Medications Acetaminophen (Acetaminophen 325 Mg Tablet) 650 mg PO Q6H PRN PRN Reason: Pain, Mild 1-3,fever,headache Last Admin: 02/04/25 05:32 Dose: 650 mg Documented By: MARGARETH Atorvastatin Calcium (Atorvastatin Calcium 80 Mg Tablet) 80 mg PO BEDTIME [facility] Last Admin: 02/04/25 21:59 Dose: 80 mg Documented By: ASHLYN Calcium Carbonate (Calcium Carbonate 750 Mg Tab.Chew) 750 mg PO Q4H PRN PRN Reason: Heartburn Ceftriaxone Sodium (Ceftriaxone Sodium 1 Gm Vial) 1 gm IVPUSH Q24H [facility] Last Admin: 02/04/25 14:43 Dose: 1 gm Documented By: KAL Enoxaparin Sodium (Enoxaparin Sodium 40 Mg/0.4 Ml Syringe) 40 mg SUBCUT Q24H [facility] Last Admin: 02/04/25 17:02 Dose: 40 mg Documented By: KAL Ergocalciferol (Ergocalciferol (Vitamin D2) 1,250 Mcg Capsule) 1,250 mcg PO WE@0900 [facility] Famotidine (Famotidine 20 Mg Tablet) 20 mg PO BID [facility] Last Admin: 02/05/25 08:36 Dose: 20 mg Documented By: PHUC Lisinopril (Lisinopril 10 Mg Tablet) 10 mg PO DAILY [facility]; Protocol Last Admin: 02/05/25 08:36 Dose: 10 mg Documented By: PHUC Magnesium Hydroxide (Milk Of Magnesia 30 Ml Oral.Susp) 30 ml PO DAILY PRN PRN Reason: Constipation Melatonin (Melatonin 3 Mg Tablet) 6 mg PO BEDTIME PRN PRN Reason: Insomnia Patient Own Medication ( Mycophenolic Acid Delayed-Release Tabs 360mg) 2 each PO BID [facility] Last Admin: 02/05/25 10:12 Dose: 2 each Documented By: PHUC Patient Own Medication ( Sirolimus 1mg Tablet ) 1 each PO BID [facility] Last Admin: 02/05/25 10:12 Dose: 1 each Documented By: PHUC Ondansetron HCl (Ondansetron Hcl 4 Mg/2 Ml Vial) 4 mg IVPUSH Q8H PRN PRN Reason: Nausea and Vomiting Prednisone (Prednisone 2.5 Mg Tablet) 7.5 mg PO DAILY [facility] Last Admin: 02/05/25 08:36 Dose: 7.5 mg Documented By: PHUC Sodium Chloride (0.9 % Sodium Chloride Flush 3 Ml Syringe) 3 ml IVFLUSH QSHIFT [facility] Last Admin: 02/05/25 08:36 Dose: Not Given Documented By: PHUC Non-Admin Reason: Previously Administered Labs 02/05/25 05:52 02/05/25 05:52 Labs: Laboratory Results - last 24 hr 02/05/25 05:52 MCV 81.3 MCH 27.7 MCHC 34.1 RDW 15.2 Plt Count 188 MPV 9.5 Immature Gran % (Auto) 0.2 Neut % (Auto) 55.8 Lymph % (Auto) 20.6 [place] % (Auto) 22.4 H Eos % (Auto) 0.8 Baso % (Auto) 0.2 Lymph # (Auto) 1.1 L [place] # (Auto) 1.2 Eos # (Auto) 0.0 Baso # (Auto) 0.0 Abs Immat Gran (auto) 0.01 Absolute Neuts (auto) 2.9 Absolute Nucleated RBC 0.000 Nucleated RBC % (auto) 0.0 Smear Tech's Comments VERIFIED Anion Gap 11 L Estim Creat Clear Calc 86.9 Estimated GFR > 60 Fasting Glucose 104 H Calcium 8.4 Total Bilirubin 0.6 AST 59 H ALT 51 H Alkaline Phosphatase 64 Total Protein 5.8 L Albumin 3.2 L Microbiology Microbiology Results: Microbiology 02/03/25 14:46 Blood Culture - Preliminary Blood - Venous No growth after 24 hours. 02/03/25 13:05 Blood Culture - Preliminary Blood - Venous No growth after 24 hours. Assessment and Plan (1) Pyelonephritis: Status: Acute (2) History of renal transplant: Status: Acute (3) Hypertension: Status: Acute Plan 64-year-old male with history of renal transplant hypertension presents after several days of feeling weak with associated diarrhea and p.o. intake. Had fall getting out of the shower questionable syncopal episode however patient remembers Full episode. CTA scan concerning for pyelonephritis around transplant kidney Possible Pyelonephritis abd ct, unremarkable gallbladder, hepatic steatosis, mild hydro of transplanted kidney UA essentially negative continue ceftriaxone blood cx negative check abd us Fever 101.0 this morning cxr negative ua negative Flu, covid and RSV negative Hyponatremia Resolved Mild transaminitis worse than admission check abd US Status post renal transplant continue outpatient therapies nephrology following Hyperlipidemia hold statin Full code Lovenox Quality Stroke Does the patient have a stroke diagnosis?: No VTE Prior VTE?: No VTE Risk Level:: Medical - moderate - high VTE Device Contraindication: Treatment Not Indicated VTE Drug Contraindication: N/A - Med Ordered
[2025-02-05 12:00] VITALS: BP 105/66; PULSE 74; RESP 16; TEMP 36.9; O2SAT 96
--- NOTE | 2025-02-05 14:30 | PC.NURSE ---
1400- IV leaking. Attempted to re-dress site without success. IV access lost. Patient unable to receive afternoon ceftriaxone at this time. PUBLIC POLICY MEDIATOR Charlene Brooks notified. Access not re-established at this time per provider. Patient waiting for abdominal ultrasound to be obtained.
--- NOTE | 2025-02-05 15:20 | MHC.CM.PN ---
EMR reviewed and per MD rounds, pt is not medically cleared for discharge due to management of pyelonephritis.
[2025-02-05 15:43] VITALS: BP 114/61; PULSE 74; RESP 20; TEMP 36.3; O2SAT 98
--- NOTE | 2025-02-05 16:57 | PM.DS ---
DS: Providers Provider Date of Service: 02/05/25 Date of admission: 02/03/25 17:32 Date of discharge: 02/05/25 Primary care physician: Unknown Physician Consults: 02/03/25 17:12 Consult to Nephrology Routine Consulting Provider: [facility] Reason for consultation: pyelo hx renal transplant Has provider been notified: No DS: Diagnosis Discharge Diagnosis (1) Pyelonephritis: Status: Acute (2) History of renal transplant: Status: Acute DS: Summary Hospital Course Hospital Course: History and physical as per admitting provider. 64-year-old male with a history of renal transplant, hypertension, CKD presents after a fall. Unwitnessed. Patient states he has been having diarrhea and decreased oral intake over the last 2 days. Patient states after getting out of the shower he felt weak fell to the ground and had to call family to help him up. Patient does recall the entire event. In the emergency room patient's workup revealed right lower quadrant kidney transplant with mild hydronephrosis and perinephric stranding. There was multifocal peripheral parenchymal increased attention attenuation question of hemorrhage. Upon arrival patient had low-grade temp. At this point admission requested 64-year-old man initially treated for pyelonephritis however urinalysis was negative, no urine culture. Patient did have feet, diarrhea. Likely viral gastroenteritis. Patient reported that he did eat something that made him feel unwell. Patient has no nausea, vomiting or diarrhea, ambulating, wishes to be discharged home. Patient should stick with a bland diet for the next week and drink plenty of fluids. Hyponatremia. Resolved Mild transaminitis. Likely secondary to viral gastroenteritis. Abdominal ultrasound negative for any acute abnormality Renal transplant, history. Continue outpatient therapies, follow Nephrology outpatient Hyperlipidemia. Continue statin Time Attestation Discharge Coordination Time (in mins): 40 Quality: Safe Use of Opioids Does Pt have an Active Cancer Diagnosis on the Problem List?: No Quality: Stroke Does the patient have a stroke diagnosis?: No Physical Exam Exam: Exam: Appearing in no acute distress head is normocephalic atraumatic eyes pupils are PERRLA sclera is anicteric mouth throat mucous membranes are intact and moist neck is supple no lymphadenopathy, no JVD noted lung sounds are clear to auscultation heart regular rate rhythm, clear S1, S2 positive bowel sounds, abdomen is soft, nontender neuro patient is alert x3, no focal deficits Vital Signs: Vital Signs: Last Vital Signs Temp 97.4 F 02/05/25 15:43 Pulse 74 02/05/25 15:43 Resp 20 02/05/25 15:43 BP 114/61 02/05/25 15:43 Pulse Ox 98 02/05/25 15:43 O2 Del Method Room Air 02/05/25 15:43 BMI result Body Mass Index 31.4 DS: Data Data Completed and Pending Labs on day of discharge: Laboratory Results - last 24 hr 02/05/25 05:52 WBC 5.2 RBC 4.80 Hgb 13.3 L Hct 39.0 L MCV 81.3 MCH 27.7 MCHC 34.1 RDW 15.2 Plt Count 188 MPV 9.5 Immature Gran % (Auto) 0.2 Neut % (Auto) 55.8 Lymph % (Auto) 20.6 [place] % (Auto) 22.4 H Eos % (Auto) 0.8 Baso % (Auto) 0.2 Lymph # (Auto) 1.1 L [place] # (Auto) 1.2 Eos # (Auto) 0.0 Baso # (Auto) 0.0 Abs Immat Gran (auto) 0.01 Absolute Neuts (auto) 2.9 Absolute Nucleated RBC 0.000 Nucleated RBC % (auto) 0.0 Smear Tech's Comments VERIFIED Sodium 137 Potassium 4.2 Chloride 106 Carbon Dioxide 24 Anion Gap 11 L BUN 13 Creatinine 0.87 Estim Creat Clear Calc 86.9 Estimated GFR > 60 Fasting Glucose 104 H Calcium 8.4 Total Bilirubin 0.6 AST 59 H ALT 51 H Alkaline Phosphatase 64 Total Protein 5.8 L Albumin 3.2 L Preliminary micro results at discharge 02/03/25 14:46 Blood Culture - Preliminary Blood - Venous No growth after 48 hours. 02/03/25 13:05 Blood Culture - Preliminary Blood - Venous No growth after 48 hours. Discharge Plan Discharge Anticipated Discharge Date/Time: 02/05/25 16:53 Patient Disposition: Home, Self-Care Discharge Diagnosis: Viral gastritis Mild transaminitis Fever Discharge Medications: Continued mycophenolate sodium 360 mg tablet,delayed release (DR/EC) 720 mg PO BID lisinopril 10 mg tablet 10 mg PO DAILY rosuvastatin 40 mg tablet 40 mg PO BEDTIME ergocalciferol (vitamin D2) 1,250 mcg (50,000 unit) capsule 1,250 mcg PO WE@0900 sirolimus 1 mg tablet 1 mg PO BID famotidine 20 mg tablet 20 mg PO BID prednisone 5 mg tablet 7.5 mg PO DAILY Discharge Orders: Discharge Order (Routine); Ordered 02/05/25 Ordered By: Charlene Brooks Diet: Advance to usual diet Activity on Discharge: As tolerated Stand Alone Forms: Patient Portal Discharge page, Work/School Release Print Language: [place]er Care Plan Goals: Follow up with Nephrology as needed. Follow bland diet for the next week, drink plenty of fluids Health Concerns: Viral gastroenteritis Mild transaminitis Fever Plan of Treatment: Follow up with primary care provider as needed Take all medications as prescribed Assessment: See discharge summary
[2025-02-05 17:44] VITALS: BP 107/60; PULSE 68; RESP 20; TEMP 36.6; O2SAT 97
== END 2025-02-05 18:12 | disposition home or self-care (01) | DRG 699 ==
LOC: HO.ED 16:19 → HO.EDOVER 17:13 → HO.S3 02-04 13:23
PROVIDERS: Hospitalist; Physician Assistant Medical; Admitting Provider Physician Assistant Medical; Emergency Provider Emergency Medicine Emergency Medical Services; Visit Provider Nurse Practitioner Acute Care
DX: T86.13 Kidney transplant infection (principal); D84.821 Immunodeficiency due to drugs; N13.6 Pyonephrosis; E87.1 Hypo-osmolality and hyponatremia; A08.4 Viral intestinal infection, unspecified; E78.5 Hyperlipidemia, unspecified; Z20.822 Contact with and (suspected) exposure to COVID-19; Z79.52 Long term (current) use of systemic steroids; Z79.623 Long term (current) use of mammalian target of rapamycin (mTOR) inhibitor; Z79.899 Other long term (current) drug therapy
CPT/HCPCS: 36415; 70450; 71046; 74176; 76705; 80048; 80053; 80076; 81001; 83605; 83690; 83735; 84484; 85025; 87040; 87637; 93005; 99285; J0696; J1650

== ENCOUNTER → 2025-02-03 13:52 | Outpatient (BNV) | payer OTHER, SELFPAY | PROVIDERS: Emergency Provider Emergency Medicine Emergency Medical Services; Visit Provider Radiology Diagnostic Radiology | DX: N13.39 Other hydronephrosis (principal); S09.90XA Unspecified injury of head, initial encounter; R53.1 Weakness | CPT/HCPCS: 70450; 71046; 74176 ==

== ENCOUNTER → 2025-02-03 14:01 | Outpatient (BNV) | payer OTHER, SELFPAY | PROVIDERS: Admitting Provider Physician Assistant Medical; Emergency Provider Emergency Medicine Emergency Medical Services; Visit Provider Internal Medicine | DX: R53.1 Weakness (principal); R94.31 Abnormal electrocardiogram [ECG] [EKG] | CPT/HCPCS: 93010 ==

== ENCOUNTER → 2025-02-03 17:11 | Outpatient (BNV) | payer OTHER, SELFPAY | PROVIDERS: Admitting Provider Physician Assistant Medical; Emergency Provider Emergency Medicine Emergency Medical Services; Visit Provider Hospitalist | DX: N12 Tubulo-interstitial nephritis, not specified as acute or chronic (principal); Z94.0 Kidney transplant status; I10 Essential (primary) hypertension | CPT/HCPCS: 99232 ==

== ENCOUNTER 2025-02-03 17:32 | Outpatient (BNV) | payer MEDICARE, SELFPAY | END 2025-02-05 15:13 | PROVIDERS: Admitting Provider Physician Assistant Medical; Emergency Provider Emergency Medicine Emergency Medical Services; Visit Provider Radiology Diagnostic Radiology | DX: N13.30 Unspecified hydronephrosis (principal) | CPT/HCPCS: 76705 ==

== ENCOUNTER → 2025-02-03 17:32 | Outpatient (BNV) | payer MEDICARE, SELFPAY | PROVIDERS: Admitting Provider Physician Assistant Medical; Emergency Provider Emergency Medicine Emergency Medical Services; Visit Provider Nurse Practitioner Family | DX: N12 Tubulo-interstitial nephritis, not specified as acute or chronic (principal); Z94.0 Kidney transplant status | CPT/HCPCS: 99232 ==

== ENCOUNTER 2025-05-16 08:18 | Outpatient (REF) | payer MEDICARE, SELFPAY ==
[2025-05-16 09:15] LABS: Hemoglobin A1C 151.6832 umol/L
[2025-05-16 09:40] LABS: Alanine Aminotransferase 24 U/L (0-40); Albumin Level 4.3 g/dL (3.5-5.0); Alkaline Phosphatase 52 U/L (39-117); Anion Gap 10 (12-20); Aspartate Amino Transferase 30 U/L (5-37); Blood Urea Nitrogen 14 mg/dL (9-16); Calcium 9.3 mg/dL (8.4-10.2); Carbon Dioxide 27 mmol/L (22-29); Chloride 106 mmol/L (96-108); Cholesterol 197 mg/dL (<200); Estimated Glomerular Filt Rate > 60; HDL Cholesterol 59 mg/dL (>40); Potassium 3.8 mmol/L (3.3-5.1); Sodium 139 mmol/L (135-145); Total Protein 6.6 g/dL (6.5-8.0); Triglycerides 103 mg/dL (<150)
[2025-05-16 09:53] LABS: Prostate Specific Antigen 2.95 ng/mL (<0.05-4.0)
[2025-05-16 10:01] LABS: HBS Num1 3.10 mIU/mL (0-7.99); HBc Num1 0.05 S/CO (0.00-0.79); HBsAGNum1 0.29 S/CO (0.00-0.99); HIV Num 1 0.07 S/CO (0.00-0.99); Hepatitis B Surface Antigen Negative (Negative); ~HepC Num1 0.09 S/CO (0.00-0.79); ~Hepatitis B Surface Antibody NONREACTIVE (Nonreactive); ~Hepatitis C Antibody Nonreactive (Nonreactive)
[2025-05-16 10:30] LABS: Microalbum/Creatinine Ratio Ur 8.3 ug/mg cr (<30)
[2025-05-16 12:14] LABS: Hematocrit 44.7 % (42.0-52.0); Hemoglobin 14.1 g/dl (14.0-18.0); Mean Corpuscular HGB Conc 31.5 g/dl (31.0-36.0); Mean Corpuscular Hemoglobin 26.9 pg (27.0-33.0); Mean Corpuscular Volume 85.3 fL (80.0-98.0); NRBC Abs Auto 0.000 X10*3/uL (0.0-0.012); NRBC Pct Auto 0.0 /100WBC (0.0-0.2); Platelet Count 282 X10*3/uL (160-400); Red Blood Count 5.24 X10*6/uL (4.60-5.80); White Blood Count 5.7 X10*3/uL (4.8-10.8)
--- OUTSIDE RECORDS SUMMARY | 2025-05-16 15:55 | XMS_ITS | Encounter Summary ---
Author Organization [facility] Address [address] [facility] [address] [place] [address] Phone Care Team Providers Care Industrial Hygenist Name Role Phone Talib Vogt MD Primary Care Provider [phone] Reason for Visit * Reason Comments Med Refill Encounter Details Date Type Department Care Team (Late st Contact Info) Description 08/14/2021 Refill [facility] [address] [facility] [address] [place] [phone] German Bruton MD [address] [facility] [address] [place] [address] Social History Tobacco Use Types Packs/Day Years Used Date Smoking Tobacco: Never Sex and Gender Information Value Date Recorded Sex Assigned at Not on file Legal Sex Male 5:15 PM EST Gender Identity Not on file Sexual Orientation Not on file documented as of this encounter Plan of Treatment Upcoming Encounters Date Type Department Care Team (Late st Contact Info) Description 06/29/2025 9:00 AM EST Office Visit [facility] [address] [place] [address] Bob Presley MD [address] [facility] [address] [place] [address] documented as of this encounter Visit Diagnoses Not on filedocumented in this encounter Care Teams Industrial Hygenist Relationship Specialty Start Date End Date Talib Vogt MD [address] [place], [place] PCP - General Internal Medicine 10/13/24 documented as of this encounter
--- OUTSIDE RECORDS SUMMARY | 2025-05-16 15:55 | XMS_ITS | Encounter Summary ---
Author Organization [facility] Address [address] [address] Phone Care Team Providers Care Electrical Controls Engineer Name Role Phone Talib Vogt MD Primary Care Provider [phone] Encounter Details Date Type Department Care Team (Late st Contact Info) Description 11/08/2023 Documentation Only [facility] [place], [address] [facility] [place] [phone] [place], [place] [address] [place] [address] Social History Tobacco Use Types [...] Visit [facility] [address] [place] [address] Bob Presley MD [address] [facility] [place] [phone] documented as of this encounter Visit Diagnoses Not on filedocumented in this encounter Care Teams Electrical Controls Engineer Relationship Specialty Start Date End Date Talib Vogt MD [address] [place], [place] PCP - General Internal Medicine 10/13/24 documented as of this encounter
--- OUTSIDE RECORDS SUMMARY | 2025-05-16 15:55 | XMS_ITS | Encounter Summary ---
Author Organization [facility] Address [address] [address] Phone Care Team Providers Care Analytics Leader Name Role Phone Talib Vogt MD Primary Care Provider [phone] Encounter Details Date Type Department Care Team (Late st Contact Info) Description 10/12/2023 Documentation Only [facility] [place], [address] [facility] [place] [phone] [place], [place] [address] [place] [address] Social History Tobacco Use Types [...] Visit [facility] [address] [place] [address] Bob Presley MD [address] [facility] [place] [phone] documented as of this encounter Visit Diagnoses Not on filedocumented in this encounter Care Teams Analytics Leader Relationship Specialty Start Date End Date Talib Vogt MD [address] [place], [place] PCP - General Internal Medicine 10/13/24 documented as of this encounter
--- OUTSIDE RECORDS SUMMARY | 2025-05-16 15:55 | XMS_ITS | Encounter Summary ---
Author Organization [facility] Address [address] [address] Phone Care Team Providers Care Sql Ssis Developer Name Role Phone Talib Vogt MD Primary Care Provider Encounter Details Date Type Department Care Team (Late st Contact Info) Description 04/04/2024 Documentation Only [facility] [place], [address] [place] [phone] [place], [place] [address] [place] [address] Social History Tobacco Use Types [...] Visit [facility] [address] [place] [address] Bob Presley MD [address] [facility] [place] [phone] documented as of this encounter Visit Diagnoses Not on filedocumented in this encounter Care Teams Sql Ssis Developer Relationship Specialty Start Date End Date Talib Vogt MD [address] [place], [place] PCP - General Internal Medicine 10/13/24 documented as of this encounter
--- OUTSIDE RECORDS SUMMARY | 2025-05-16 15:55 | XMS_ITS | Clinical Summary ---
Author Organization [facility], Address [address] [place] [address] [place] [address] Phone Care Team Providers Care Distribution Operations Supervisor Name Role Phone Talib Vogt MD Primary Care Provider [phone] Allergies No known active allergies Medications amoxicillin (AMOXIL) 500 MG capsule Take 4 capsules by mouth 5 Active Lumigan 0.01 % ophthalmic drops 1 Active ergocalciferol 1.25 MG (66616 UT) capsule Comments: Filled Date: Jun 14 2020 12:00AM Patient Notes: TAKE 1 CAPSULE BY MOUTH ONCE A WEEK Duration: 84 0 Active timolol (TIMOPTIC) 0.5 % ophthalmic solution 1 Active rosuvastatin (CRESTOR) 40 MG tabletIndications: Mixed hyperlipidemia Take 1 tablet (40 mg total) by mouth 1 (one) time each day 90 tablet 3 1 Active sirolimus (Rapamune) 1 MG tablet Take 1 tablet (1 mg total) by mouth in the morning and 1 tablet (1 mg total) in the evening. Do not crush, chew, or split. . 60 tablet 5 2 Active Mycophenolate Sodium (Mycophenolic Acid) 360 MG tablet delayed-release Take 2 tablets by mouth in the morning and 2 tablets in the evening. 4 Active predniSONE 5 MG tablet TAKE 1 AND 1/2 TAB BY MOUTH ONCE A DAY 4 Active famotidine (PEPCID) 20 MG tablet Take 1 tablet (20 mg total) by mouth in the morning and 1 tablet (20 mg total) in the evening. 180 tablet 3 4 05/25/20 25 Active ferrous sulfate (Fe Tabs) 325 (65 Fe) MG EC tablet Take 1 tablet (325 mg total) by mouth 1 (one) time each day with breakfast Do not crush, chew, or split. 30 tablet 11 5 10/14/19 26 Active lisinopril 10 MG tabletIndications: Secondary hypertension, not otherwise specified Take 1 tablet (10 mg total) by mouth 1 (one) time each day 90 tablet 3 5 02/24/20 26 Active Active Problems Problem Noted Date Diagnosed Date Chronic kidney disease, stage 2 (mild) 4 Kidney transplant status 01/18/2024 Immunosuppressed 01/18/2024 Encounters Date Type Department Care Team Description 04/25/2025 10:15 AM EDT [facility] [address] [place] [address] Bob Presley MD Kidney transplant status (Primary Dx); Immunosuppressed, not otherwise specified (HCC); Hypertension 04/10/2025 Orders Only [facility] [address] [place] [address] Josselyn Shine MA Kidney transplant status (Primary Dx); Immunosuppressed, not otherwise specified (HCC); Hypertension; Other iron deficiency anemia; Chronic kidney disease, stage 2 (mild); Other specified hypoparathyroidism (HCC); Albuminuria, not otherwise specified 02/28/2025 Orders Only [facility] [address] [place] [address] Josselyn Shine MA Secondary hypertension, not otherwise specified 02/16/2025 9:45 AM EDT Office [facility] [address] [place] [address] Bob Presley MD Kidney transplant status (Primary Dx); Immunosuppressed, not otherwise specified (HCC); Hypertension from Last 3 Months Family History Medical History Relation Comments Stroke Father CVA x 2 Stroke Mother CVA Hypertension Sibling 1 brother Cancer Sibling 2 stomach Kidney disease Sibling 3 brother on dialy sis Relation Status Comments Father Mother Sibling 1 Sibling 2 Sibling 3 Social History Tobacco Use Types Packs/Day Years Used Date Smoking Tobacco: Never Sex and Gender Information Value Date Recorded Sex Assigned at Not on file Legal Sex Male 5:15 PM EST Gender Identity Not on file Sexual Orientation Not on file Last Filed Vital Signs Vital Sign Reading Time Taken Comments Blood Pressure 112/60 12/20/2024 10:32 AM EDT Pulse 86 06/19/2019 12:00 PM EST Temperature - - Respiratory Rate - - Oxygen Saturation - - Inhaled Oxygen Concentration - - Weight 87.4 kg (192 lb 9.6 oz) 12/20/2024 10:32 AM EDT Height 167.6 cm (5' 6 ) 05/30/2024 8:54 AM EST Body Mass Index 31.09 05/30/2024 8:54 AM EST Plan of Treatment Upcoming Encounters Date Type Department Care Team (Late st Contact Info) Description 06/29/2025 9:00 AM EST Office Visit [facility] [address] [place] [phone] Bob Presley MD [address] [place] [address] [place] [phone] Health Maintenance Due Date Last Done Comments Pneumococcal Vaccine: 50+ Years (1 of 2 - PCV) 1977 Colonoscopy (Post-Transplant Patient) 01/12/2024 Influenza Vaccine (#1) 2025 5, 05/27/2012, 04/21/2010 Hepatitis B Vaccine Aged Out No longe r eligible based on patient's age to complete this topic Procedures Procedure Name Priority Date/Time Associated Diagnosis Comments REFLEXIVE URINE CULTURE (HC) Routine 04/23/2025 10:03 AM EDT URINALYSIS, COMPLETE Routine 04/23/2025 10:03 AM EDT Kidney transplant status Immunosuppressed, not otherwise specified (HCC) Hypertension Other iron deficiency anemia Chronic kidney disease, stage 2 (mild) Other specified hypoparathyroidism (HCC) Albuminuria, not otherwise specified URINE ALBUMIN / CREATININE RATIO Routine 04/23/2025 10:03 AM EDT Kidney transplant status Immunosuppressed, not otherwise specified (HCC) Hypertension Other iron deficiency anemia Chronic kidney disease, stage 2 (mild) Other specified hypoparathyroidism (HCC) Albuminuria, not otherwise specified PTH, INTACT Routine 04/23/2025 10:03 AM EDT Kidney transplant status Immunosuppressed, not otherwise specified (HCC) Hypertension Other iron deficiency anemia Chronic kidney disease, stage 2 (mild) Other specified hypoparathyroidism (HCC) Albuminuria, not otherwise specified IRON PANEL (FE, TIBC, TSAT) Routine 04/23/2025 10:03 AM EDT Kidney transplant status Immunosuppressed, not otherwise specified (HCC) Hypertension Other iron deficiency anemia Chronic kidney disease, stage 2 (mild) Other specified hypoparathyroidism (HCC) Albuminuria, not otherwise specified FERRITIN Routine 04/23/2025 10:03 AM EDT Kidney transplant status Immunosuppressed, not otherwise specified (HCC) Hypertension Other iron deficiency anemia Chronic kidney disease, stage 2 (mild) Other specified hypoparathyroidism (HCC) Albuminuria, not otherwise specified CREATINE KINASE Routine 04/23/2025 10:03 AM EDT Kidney transplant status Immunosuppressed, not otherwise specified (HCC) Hypertension Other iron deficiency anemia Chronic kidney disease, stage 2 (mild) Other specified hypoparathyroidism (HCC) Albuminuria, not otherwise specified ALT Routine 04/23/2025 10:03 AM EDT Kidney transplant status Immunosuppressed, not otherwise specified (HCC) Hypertension Other iron deficiency anemia Chronic kidney disease, stage 2 (mild) Other specified hypoparathyroidism (HCC) Albuminuria, not otherwise specified AST Routine 04/23/2025 10:03 AM EDT Kidney transplant status Immunosuppressed, not otherwise specified (HCC) Hypertension Other iron deficiency anemia Chronic kidney disease, stage 2 (mild) Other specified hypoparathyroidism (HCC) Albuminuria, not otherwise specified CBC AND DIFFERENTIAL Routine 04/23/2025 10:03 AM EDT Kidney transplant status Immunosuppressed, not otherwise specified (HCC) Hypertension Other iron deficiency anemia Chronic kidney disease, stage 2 (mild) Other specified hypoparathyroidism (HCC) Albuminuria, not otherwise specified RENAL FUNCTION PANEL Routine 04/23/2025 10:03 AM EDT Kidney transplant status Immunosuppressed, not otherwise specified (HCC) Hypertension Other iron deficiency anemia Chronic kidney disease, stage 2 (mild) Other specified hypoparathyroidism (HCC) Albuminuria, not otherwise specified MYCOPHENOLIC ACID AND METABO. Routine 04/23/2025 10:03 AM EDT Kidney transplant status Immunosuppressed, not otherwise specified (HCC) Hypertension Other iron deficiency anemia Chronic kidney disease, stage 2 (mild) Other specified hypoparathyroidism (HCC) Albuminuria, not otherwise specified SIROLIMUS LEVEL Routine 04/23/2025 10:03 AM EDT Kidney transplant status Immunosuppressed, not otherwise specified (HCC) Hypertension Other iron deficiency anemia Chronic kidney disease, stage 2 (mild) Other specified hypoparathyroidism (HCC) Albuminuria, not otherwise specified MICROSCOPIC EXAMINATION - DO NOT USE Routine 04/23/2025 10:03 AM EDT URINALYSIS, COMPLETE Routine 02/13/2025 11:12 AM EDT Kidney transplant status Immunosuppressed, not otherwise specified (HCC) Other iron deficiency anemia Other specified hypoparathyroidism (HCC) Albuminuria, not otherwise specified Chronic kidney disease, stage 2 (mild) Secondary hypertension, not otherwise specified URINE ALBUMIN / CREATININE RATIO Routine 02/13/2025 11:12 AM EDT Kidney transplant status Immunosuppressed, not otherwise specified (HCC) Other iron deficiency anemia Other specified hypoparathyroidism (HCC) Albuminuria, not otherwise specified Chronic kidney disease, stage 2 (mild) Secondary hypertension, not otherwise specified PTH, INTACT Routine 02/13/2025 11:12 AM EDT Kidney transplant status Immunosuppressed, not otherwise specified (HCC) Other iron deficiency anemia Other specified hypoparathyroidism (HCC) Albuminuria, not otherwise specified Chronic kidney disease, stage 2 (mild) Secondary hypertension, not otherwise specified IRON PANEL (FE, TIBC, TSAT) Routine 02/13/2025 11:12 AM EDT Kidney transplant status Immunosuppressed, not otherwise specified (HCC) Other iron deficiency anemia Other specified hypoparathyroidism (HCC) Albuminuria, not otherwise specified Chronic kidney disease, stage 2 (mild) Secondary hypertension, not otherwise specified FERRITIN Routine 02/13/2025 11:12 AM EDT Kidney transplant status Immunosuppressed, not otherwise specified (HCC) Other iron deficiency anemia Other specified hypoparathyroidism (HCC) Albuminuria, not otherwise specified Chronic kidney disease, stage 2 (mild) Secondary hypertension, not otherwise specified CREATINE KINASE Routine 02/13/2025 11:12 AM EDT Kidney transplant status Immunosuppressed, not otherwise specified (HCC) Other iron deficiency anemia Other specified hypoparathyroidism (HCC) Albuminuria, not otherwise specified Chronic kidney disease, stage 2 (mild) Secondary hypertension, not otherwise specified ALT Routine 02/13/2025 11:12 AM EDT Kidney transplant status Immunosuppressed, not otherwise specified (HCC) Other iron deficiency anemia Other specified hypoparathyroidism (HCC) Albuminuria, not otherwise specified Chronic kidney disease, stage 2 (mild) Secondary hypertension, not otherwise specified AST Routine 02/13/2025 11:12 AM EDT Kidney transplant status Immunosuppressed, not otherwise specified (HCC) Other iron deficiency anemia Other specified hypoparathyroidism (HCC) Albuminuria, not otherwise specified Chronic kidney disease, stage 2 (mild) Secondary hypertension, not otherwise specified CBC AND DIFFERENTIAL Routine 02/13/2025 11:12 AM EDT Kidney transplant status Immunosuppressed, not otherwise specified (HCC) Other iron deficiency anemia Other specified hypoparathyroidism (HCC) Albuminuria, not otherwise specified Chronic kidney disease, stage 2 (mild) Secondary hypertension, not otherwise specified RENAL FUNCTION PANEL Routine 02/13/2025 11:12 AM EDT Kidney transplant status Immunosuppressed, not otherwise specified (HCC) Other iron deficiency anemia Other specified hypoparathyroidism (HCC) Albuminuria, not otherwise specified Chronic kidney disease, stage 2 (mild) Secondary hypertension, not otherwise specified MYCOPHENOLIC ACID AND METABO. Routine 02/13/2025 11:12 AM EDT Kidney transplant status Immunosuppressed, not otherwise specified (HCC) Other iron deficiency anemia Other specified hypoparathyroidism (HCC) Albuminuria, not otherwise specified Chronic kidney disease, stage 2 (mild) Secondary hypertension, not otherwise specified SIROLIMUS LEVEL Routine 02/13/2025 11:12 AM EDT Kidney transplant status Immunosuppressed, not otherwise specified (HCC) Other iron deficiency anemia Other specified hypoparathyroidism (HCC) Albuminuria, not otherwise specified Chronic kidney disease, stage 2 (mild) Secondary hypertension, not otherwise specified MICROSCOPIC EXAMINATION - DO NOT USE Routine 02/13/2025 11:12 AM EDT from Last 3 Months Results * (ABNORMAL) Reflexive Urine Culture (04/23/2025 10:03 AM EDT) Result Enterococcus faecalis(A) Ped[facility] Flore[facility] [phone] Comment: Enterococci susceptible to penicillin are predictably susceptible to ampicillin, amoxicillin, ampicillin-sulbactam, amoxicillin-clavulanate, and piperacillin-tazobactam for pdw-flmn-ggzeofpne producing enterococci. (CLSI 2018) For Enterococcus species, aminoglycosides (except for high-level resistance screening), cephalosporins, clindamycin, and trimethoprim-sulfamethoxazole are not effective clinically. (CLSI, T692-A88, 2016) 50,000-100,000 colony forming units per mL Culture Result, Urine Final report(A) [facility] ANTIMICROBIAL SUSCEPTIBILITY Comment [facility] Fl[facility] Comment: S = Susceptible; I = Intermediate; R = Resistant P = Positive; N = Negative MICS are expressed in micrograms per mL Antibiotic RSLT#1 RSLT#2 RSLT#3 RSLT#4 Ciprofloxacin I Levofloxacin I Nitrofurantoin S Penicillin S Tetracycline R Vancomycin S 04/23/2025 10:0 3 AM EDT 04/23/2025 Bob Presley MD LAB HISTORICAL-CONVERSIONS -UNSOLICITED RESULTS Final Result [facility] [address] [place] [address] * (ABNORMAL) Urinalysis, Complete w/reflex to Culture (04/23/2025 10:03 AM EDT) Only the most recent of2 resultswithin the time period is included. Specific [place], Urine 1.027 1.005 - 1.030 [facility] pH Urine 6.0 5.0 - 7.5 [facility] Color, Urine Yellow Yellow [facility] Appearance Urine Clear Clear [facility] WBC Esterase Urine Trace(A) Negative [facility] Protein, Ur Trace Negative/Tra ce [facility] [phone] Glucose, Ur Negative Negative [facility] Ketones, Urine Negative Negative [facility] Blood Urine Negative Negative [facility] Bilirubin Urine Negative Negative [facility] Urobilinogen Urine 0.2 0.2 - 1.0 mg/dL [facility] Nitrite, Urine Negative Negative [facility] Microscopic Examination See below: [facility] Comment:Microscopic was sina cated and was performed. URINALYSIS REFLEX Comment [facility] [phone] Comment:This specimen has re flexed to a Urine Culture. Urine Urine specimen obtained by clean catch procedure / Unknown 04/23/2025 10:03 AM EDT 04/23/2025 Bob Presley MD LAB URINE ORDERABLES Final Result [facility] [address] [place] [address] * (ABNORMAL) Mycophenolic Acid and Metabo. (04/23/2025 10:03 AM EDT) Only the most recent of2 resultswithin the time period is included. Mycophenolic Acid 5.0(HH) 1.0 - 3.5 ug/mL [facility] Mycophenolic Acid Glucuronide 38 35 - 100 ug/mL [facility] Blood Venous blood / Unknown 04/23/2025 10:03 AM EDT 04/23/2025 Narrative [facility] - 04/26/2025 2:06 PM EDT Test(s) 171831-[id number] Acid; 887471- Mycophenolic Acid Glucuronide was developed and its performance characteristics determined by [employer]. It has not been cleared or approved by the Food and Drug Administration. Bob Presley MD LAB BLOOD ORDERABLES Final Result [facility] [address] [place] [address] * (ABNORMAL) Microscopic Examination (04/23/2025 10:03 AM EDT) Only the most recent of2 resultswithin the time period is included. WBC, Urine 11-30(A) 0 - 5 /hpf [facility] RBC, Urine None seen 0 - 2 /hpf [facility] Squamous Epithelial, Urine 0-10 0 - 10 /hpf [facility] Casts None seen None seen /lpf [facility] Bacteria, Urine None seen None seen/Few [facility] 04/23/2025 10:0 3 AM EDT 04/23/2025 Bob Presley MD LAB MICROBIOLOGY - GENERAL ORDERABLES Final Result [facility] [address] [place] [address] * Sirolimus level (04/23/2025 10:03 AM EDT) Only the most recent of2 resultswithin the time period is included. Sirolimus Lvl 5.0 3.0 - 20.0 ng/mL [facility] Comment:Performed by LC/MS-M S technology Blood Venous blood / Unknown 04/23/2025 10:03 AM EDT 04/23/2025 Narrative [facility] - 04/26/2025 2:06 PM EDT Test(s) 437896-Pgtvgfbcg, Blood was developed and its performance characteristics determined by [facility]. It has not been cleared or approved by the Food and Drug Administration. Bob Presley MD LAB BLOOD ORDERABLES Final Result Performing Organization Address City/[facility]/ZIP Co de Phone Number [facility] [address] [place] [address] * Iron Panel (Fe, TIBC, TSAT) (04/23/2025 10:03 AM EDT) Only the most recent of2 resultswithin the time period is included. TIBC 297 250 - 450 ug/dL [facility] UIBC 206 111 - 343 ug/dL [facility] Iron 91 38 - 169 ug/dL [facility] Iron Saturation (TSat) 31 15 - 55 % [facility] Blood Venous blood / Unknown 04/23/2025 10:03 AM EDT 04/23/2025 Bob Presley MD LAB BLOOD ORDERABLES Final Result Performing Organization Address City/[facility]/ZIP Co de Phone Number [facility] [address] [place] [address] * Urine Albumin / Creatinine Ratio (04/23/2025 10:03 AM EDT) Only the most recent of2 resultswithin the time period is included. Creatinine, Ur 302.4 Not Estab. mg/dL [facility] Albumin, Urine 34.0 Not Estab. ug/mL [facility] Albumin/Creatin ine Ratio 11 0 - 29 mg/g creat [facility] Comment: Normal: 0 - 29 Moderately increased: 30 - 300 Severely increased: >300 Urine Urine specimen obtained by clean catch procedure / Unknown 04/23/2025 10:03 AM EDT 04/23/2025 Bob Presley MD LAB URINE ORDERABLES Final Result Performing Organization Address City/[facility] Co de Phone Number [facility] [address] [place] [address] * (ABNORMAL) CBC and Differential (04/23/2025 10:03 AM EDT) Only the most recent of2 resultswithin the time period is included. WBC 6.1 3.4 - 10.8 x10E3/uL [facility] RBC 5.94(H) 4.14 - 5.80 x10E6/uL [facility] Hemoglobin 16.0 13.0 - 17.7 g/dL [facility] Hematocrit 50.3 37.5 - 51.0 % [facility] MCV 85 79 - 97 fL [facility] MCH 26.9 26.6 - 33.0 pg [facility] MCHC 31.8 31.5 - 35.7 g/dL [facility] RDW 16.3(H) 11.6 - 15.4 % [facility] Platelets 320 150 - 450 x10E3/uL [facility] Neutrophils Relative 52 Not Estab. % [facility] Lymphocytes Relative 32 Not Estab. % [facility] Monocytes 14 Not Estab. % [facility] Eosinophils Relative 1 Not Estab. % [facility] Basophils Relative 1 Not Estab. % [facility] Neutrophils Absolute 3.2 1.4 - 7.0 x10E3/uL [facility] Lymphocytes Absolute 2.0 0.7 - 3.1 x10E3/uL [facility] Monocytes Absolute 0.8 0.1 - 0.9 x10E3/uL [facility] Eosinophils Absolute 0.0 0.0 - 0.4 x10E3/uL [facility] Basophils Absolute 0.0 0.0 - 0.2 x10E3/uL [facility] Immature Granulocytes 0 Not Estab. % [facility] Immature Grans (Absolute) 0.0 0.0 - 0.1 x10E3/uL [facility] Blood Venous blood / Unknown 04/23/2025 10:03 AM EDT 04/23/2025 us Bob Presley MD LAB BLOOD ORDERABLES Final Result [facility] [address] [place] [address] * ALT (04/23/2025 10:03 AM EDT) Only the most recent of2 resultswithin the time period is included. ALT (SGPT) 16 0 - 44 IU/L [facility] Blood Venous blood / Unknown 04/23/2025 10:03 AM EDT 04/23/2025 Bob Presley MD LAB BLOOD ORDERABLES Final Result [facility] [address] [place] [address] * AST (04/23/2025 10:03 AM EDT) Only the most recent of2 resultswithin the time period is included. AST (SGOT) 15 0 - 40 IU/L [facility] Blood Venous blood / Unknown 04/23/2025 10:03 AM EDT 04/23/2025 Bob Presley MD LAB BLOOD ORDERABLES Final Result [facility] [address] [place] [address] * PTH, Intact (04/23/2025 10:03 AM EDT) Only the most recent of2 resultswithin the time period is included. PTH 27 15 - 65 pg/mL [facility] Blood Venous blood / Unknown 04/23/2025 10:03 AM EDT 04/23/2025 Bob Presley MD LAB BLOOD ORDERABLES Final Result [facility] [address] [place] [address] * Ferritin (04/23/2025 10:03 AM EDT) Only the most recent of2 resultswithin the time period is included. Ferritin 245 30 - 400 ng/mL [facility] Blood Venous blood / Unknown 04/23/2025 10:03 AM EDT 04/23/2025 oBb Presley MD LAB BLOOD ORDERABLES Final Result [facility] [address] [place] [address] * CK (04/23/2025 10:03 AM EDT) Only the most recent of2 resultswithin the time period is included. Creatine Kinase (CK/CPK) 143 41 - 331 U/L [facility] Blood Venous blood / Unknown 04/23/2025 10:03 AM EDT 04/23/2025 Bob Presley MD LAB BLOOD ORDERABLES Final Result [facility] [address] [place] [address] * (ABNORMAL) Renal Function Panel (04/23/2025 10:03 AM EDT) Only the most recent of2 resultswithin the time period is included. Sodium 140 134 - 144 mmol/L [facility] Potassium 4.4 3.5 - 5.2 mmol/L [facility] Chloride 103 96 - 106 mmol/L [facility] Glucose 94 70 - 99 mg/dL [facility] BUN 15 8 - 27 mg/dL [facility] Creatinine 0.99 0.76 - 1.27 mg/dL [facility] eGFR CKD-EPI CR 2020 84 >59 mL/min/1.7 3 [facility] BUN/Creatinine Ratio 15 10 - 24 [facility] Bicarbonate (CO2) 16(L) 20 - 29 mmol/L [facility] Calcium 9.5 8.6 - 10.2 mg/dL [facility] Phosphorus 3.0 2.8 - 4.1 mg/dL [facility] Albumin 4.4 3.9 - 4.9 g/dL [facility] Blood Venous blood / Unknown 04/23/2025 10:03 AM EDT 04/23/2025 Bob Presley MD LAB BLOOD ORDERABLES Final Result [facility] [address] [place] [address] from Last 3 Months Insurance [facility] Medicare Care Teams Distribution Operations Supervisor Relationship Specialty Start Date End Date Tailb Vogt MD [address] [place], [place] PCP - General Internal Medicine 10/13/24
--- OUTSIDE RECORDS SUMMARY | 2025-05-16 15:55 | XMS_ITS | Encounter Summary ---
Author Organization [facility] Address [address] [facility] [address] [place] [address] Phone Care Team Providers Care Director Design Name Role Phone Talib Vogt MD Primary Care Provider Reason for Visit * Reason Comments Med Refill Encounter Details Date Type Department Care Team (Late st Contact Info) Description 04/22/2021 Refill [facility] [address] [facility] [address] [place] [phone] German Burton MD [address] [facility] [address] [place] [address] Social History Tobacco Use Types [...] Visit [facility] [address] [place] [address] Bob Presley MD [address] [facility] [place] [address] documented as of this encounter Visit Diagnoses Not on filedocumented in this encounter Care Teams Director Design Relationship Specialty Start Date End Date Talib Vogt MD [address] [place], [place] PCP - General Internal Medicine 10/13/24 documented as of this encounter
== END 2025-05-16 08:19 | disposition home or self-care (01) ==
LOC: HO.LAB 08:18
PROVIDERS: PCP Internal Medicine; Visit Provider Internal Medicine
DX: Z00.00 Encounter for general adult medical examination without abnormal findings (principal); Z12.5 Encounter for screening for malignant neoplasm of prostate; Z11.4 Encounter for screening for human immunodeficiency virus [HIV]; Z13.29 Encounter for screening for other suspected endocrine disorder; Z13.0 Encounter for screening for diseases of the blood and blood-forming organs and certain disorders involving the immune mechanism; Z13.21 Encounter for screening for nutritional disorder; Z13.6 Encounter for screening for cardiovascular disorders; Z13.1 Encounter for screening for diabetes mellitus
CPT/HCPCS: 36415; 80053; 80061; 82043; 82306; 82570; 83036; 84153; 84443; 85027; 86704; 86706; 86803; 87340; 87389